=== PATIENT | female | born 1945 | race Caucasian/White ===

== ENCOUNTER → 2017-11-19 09:27 | Outpatient (CLI) | payer MEDICARE, OTHER, SELFPAY ==
--- NOTE | 2017-11-19 09:33 | MM_ITS ---
MM Dig screening mamm BI w/CAD CAD Screening ORDERING PHYSICIAN : Kathleen Manzanares PATIENT AGE: 71 years GENDER: Female COMPARISON: Previous mammograms: May 2016, February 2014, November INDICATION: Routine screening. No hormones. No new complaints.. Family history+ . Mother and sister with breast cancer TECHNIQUE: Standard CC and MLO images were obtained. R2 CAD reviewed. FINDINGS: Lower density breast with moderate fatty replacement. Stable scattered tiny areas of nodularity vaguely seen bilaterally have shown no significant change and appear stable baseline features for this patient. Stable and dating back to to 2010. Bilateral follow-up in one year adequate and recommended IMPRESSION: Stable mammogram No significant new areas of concern Follow up one year recommended BI-RADS Category: 2 Benign Finding(s) RECOMMENDED FOLLOW-UP: 1YR 1 YEAR FOLLOW-UP (A letter has been sent to the patient regarding results of the study.)
== END ==
PROVIDERS: PCP Family Medicine; Visit Provider Family Medicine
DX: Z12.31 Encounter for screening mammogram for malignant neoplasm of breast (principal)
CPT/HCPCS: 77067

== ENCOUNTER → 2018-11-22 15:42 | Outpatient (CLI) | payer MEDICARE, OTHER, SELFPAY ==
[2018-11-23 14:13] LABS: Basophils % 0.5 % (0.1-2.0); Eosinophils # 0.2 K/mm3 (0.0-0.4); Eosinophils % 2.5 % (0.1-12.0); Hematocrit 43.2 % (37.0-47.0); Hemoglobin 13.2 g/dL (12.2-16.2); Lymphocytes # 1.6 K/mm3 (0.7-4.5); Lymphocytes % 21.2 % (10-50); Mean Corpuscular HGB Conc 30.5 g/dL (31.8-35.4); Mean Corpuscular Volume 91.8 fl (81-99); Mean Platelet Volume 9.4 fl (7.4-10.4); Monocytes # 0.6 K/mm3 (0.1-1.0); Monocytes % 7.7 % (1.7-9.3); Neutrophils # 4.9 K/mm3 (1.8-7.8); Platelet Count 336 K/mm3 (142-424); Red Blood Count 4.71 M/mm3 (4.20-5.40); Red Cell Distribution Width 13.3 % (11.5-17.5); White Blood Count 7.3 K/mm3 (4.8-10.8)
[2018-11-23 15:51] LABS: Alanine Aminotransferase 27 U/L (12-78); Albumin Level 3.8 gm/dL (3.4-5.0); Albumin/Globulin Ratio 1.2 (1.1-1.8); Alkaline Phosphatase 87 U/L (46-116); Anion Gap 12.2 mEq/L (5-15); Aspartate Amino Transferase 17 U/L (15-37); Bilirubin,Total 0.4 mg/dL (0.2-1.0); Blood Urea Nitrogen 20 mg/dL (7-18); Calcium 9.1 mg/dL (8.5-10.1); Carbon Dioxide 29 mmol/L (21.0-32.0); Chloride 99 mmol/L (98-107); Chol/HDL Ratio 4.1 (1-3.5); Cholesterol 161 mg/dL (140-200); Creatinine,Serum 0.99 mg/dL (0.55-1.02); Estimated Glomerular Filt Rate 55 ml/min (>60); GFR (African American) 67 ML/MIN (>60); Globulin 3.1 gm/dl (1.3-3.2); Glucose 98 mg/dL (74-106); HDL Cholesterol 39 mg/dL (29-89); LDL Cholesterol 89 mg/dL (0-130); Potassium 4.2 mmoL/L (3.5-5.1); Sodium 136 mmol/L (136-145); T4 (Thyroxine) 12.3 ug/dl (4.7-13.3); Thyroid Stimulating Hormone 0.25 uIU/ml (0.358-3.740); Total Protein,Serum 6.9 gm/dL (6.4-8.2); Triglycerides 167 mg/dL (30-200); VLDL Cholesterol 33 mg/dL (0-40)
[2018-12-12 23:09] LABS: 1,25-Dihydroxy, Vitamin D-2 <10 pg/mL (.)
[2018-12-16 17:41] LABS: 1,25 Dihydroxy Vitamin D 14 pg/mL (.); 1,25-Dihydroxy, Vitamin D-3 14 pg/mL (.)
== END ==
PROVIDERS: Visit Provider Emergency Medicine
DX: I10 Essential (primary) hypertension (principal); Z79.891 Long term (current) use of opiate analgesic; E78.5 Hyperlipidemia, unspecified
CPT/HCPCS: 80053; 80061; 82652; 84436; 84443; 85025

== ENCOUNTER → 2018-12-05 07:35 | Outpatient (CLI) | payer MEDICARE, OTHER, SELFPAY ==
--- NOTE | 2018-12-05 07:38 | AS_ITS ---
Renal Arterial Duplex Indications: 405.91 Unspecified renovascular hypertension. IMPRESSIONS 1. Less than 60% stenosis involving the right renal artery 2. The left renal artery appears normal. 3. Right non-obstructing nephrolithiasis. History: Risk factors: Hypertension. Complete renal arterial duplex. Duplex scan and Doppler flow study including spectral analysis, color and dalton scale imaging. Height: Height: 157.5cm. Height: 62in. Weight: Weight: 110.2kg. Weight: 242.5lb. Body mass index: BMI: 44.4kg/m^2. Body surface area: BSA: 2.26m^2. Location: Vascular laboratory. Patient status: Outpatient. Tables: Arterial flow: + +-------+--------+ Location V sys V ed + +-------+--------+ Right renal - proximal 212cm/s 46.7cm/s + +-------+--------+ Right renal - mid 106cm/s 29.1cm/s + +-------+--------+ Right renal - distal 140cm/s 27.1cm/s + +-------+--------+ Left renal - proximal 150cm/s 25.4cm/s + +-------+--------+ Left renal - mid 119cm/s 25.5cm/s + +-------+--------+ Left renal - distal 102cm/s 25.2cm/s + +-------+--------+ Right renal-origin 230cm/s 51.6cm/s + +-------+--------+ Left renal-origin 155cm/s 43.5cm/s + +-------+--------+ Aorta-prox 116cm/s -------- + +-------+--------+ Renal anatomy: + +-----+------+ Left Right + +-----+------+ Long axis 9.2cm 10.3cm + +-----+------+ Short axis 6cm 6cm + +-----+------+ Cortical thickness 1.5cm 1.6cm + +-----+------+ Velocity ratios: + +-----+ V sys + +-----+ Right renal/aortic 2 + +-----+ Left renal/aortic 1.3 + +-----+ (Report amended ) Electronically signed by: Willian Marcum [id number]
== END ==
PROVIDERS: PCP Emergency Medicine; Visit Provider Emergency Medicine
DX: I70.1 Atherosclerosis of renal artery (principal)
CPT/HCPCS: 93976

== ENCOUNTER → 2019-01-12 12:55 | Outpatient (CLI) | payer MEDICARE, OTHER, SELFPAY ==
--- NOTE | 2019-01-12 12:57 | CA_ITS ---
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 Line: GEORGE Laterality: Bilateral Study Quality: Good Indications: episode of vision loss lt eye Risk Factors Hypertension: Hyperlipidemia Doppler Spectral Velocity Analysis ECA (R) 109.00/12.60 cm/s ECA (L) 121.00/16.70 cm/s dICA (R) 71.90/17.80 cm/s dICA (L) 92.70/26.00 cm/s Dena (R) 62.10/13.30 cm/s Dena (L) 72.40/23.90 cm/s pICA (R) 70.10/16.60 cm/s pICA (L) 80.00/19.50 cm/s dCCA (R) 79.80/16.00 cm/s dCCA (L) 67.00/14.70 cm/s pCCA (R) 107.00/16.50 cm/s pCCA (L) 75.40/16.50 cm/s Vert (R) 51.00/18.50 cm/s Vert (L) 55.50/15.40 cm/s ICA/CCA 0.90 ICA/CCA 1.38 Findings Duplex evaluation demonstrates stenosis of the right proximal internal carotid artery in the range of 20-49% with PSV <140 cm/sec, EDV <100 cm/sec, and IC/CC Ratio <4.0.Duplex evaluation demonstrates stenosis of the left proximal internal carotid artery <20% with PSV <140 cm/sec, EDV <100 cm/sec, and IC/CC Ratio <4.0. Antegrade flow seen bilateral vertebral arteries. Conclusion Duplex evaluation demonstrates stenosis of the right proximal internal carotid artery in the range of 20-49% with PSV <140 cm/sec, EDV <100 cm/sec, and IC/CC Ratio <4.0.Duplex evaluation demonstrates stenosis of the left proximal internal carotid artery <20% with PSV <140 cm/sec, EDV <100 cm/sec, and IC/CC Ratio <4.0. Antegrade flow seen bilateral vertebral arteries. Electronically signed by : Willian Marcum MD 01/12/2019 19:30:16
== END ==
PROVIDERS: PCP Emergency Medicine; Visit Provider Emergency Medicine
DX: G45.3 Amaurosis fugax (principal)
CPT/HCPCS: 93880

== ENCOUNTER → 2019-05-03 09:28 | Outpatient (CLI) | payer MEDICARE, OTHER, SELFPAY ==
--- NOTE | 2019-05-03 09:33 | XR_ITS ---
PROCEDURE: XR HIP LT 2-3V W/PELVIS CLINICAL INDICATION: left hip pain COMPARISON: No exams were available for comparison FINDINGS: No fracture or dislocation is evident. No significant degenerative change. No lytic or blastic change. Unremarkable soft tissues. IMPRESSION: Negative left hip Dictated by: Willian Marcum MD 05/03/2019 21:45 Electronically signed by Willian Marcum MD in [facility] 05/03/2019 21:45
--- NOTE | 2019-05-03 09:33 | XR_ITS ---
PROCEDURE: XR KNEE RT 4V CLINICAL INDICATION: right knee pain COMPARISON: No exams were available for comparison FINDINGS: There are severe osteoarthritic changes of the medial compartment and patellofemoral joint with moderate osteoarthritic change of the lateral compartment. Prominent osteophytes are present at the patellofemoral joint.. A sclerotic focus in present involving the distal shaft of the femur medially. There is mild lateral translation of the tibia on the weight-bearing view with lateral tibial subluxation of 11 mm. A calcific density overlies the medial femoral condyle may be due to a loose body. There is an additional calcific density overlying the medial aspect of the proximal tibia and could be due to an old avulsion fracture. There may be a loose body in the popliteal region. IMPRESSION: Severe osteoarthritic change of the medial compartment and patellofemoral joint. Please see above for details There is a sclerotic focus involving the distal shaft of the femur medially. This is of unknown clinical significance. Suggest follow-up femur films to exclude a blastic lesion. Dictated by: Willian Marcum MD 05/03/2019 21:39 Electronically signed by Willian Marcum MD in [facility] 05/03/2019 21:42
--- NOTE | 2019-05-03 09:33 | XR_ITS ---
PROCEDURE: XR HIP RT 2-3V W/PELVIS CLINICAL INDICATION: right hip pain COMPARISON: No exams were available for comparison FINDINGS: No fracture or dislocation is evident. No significant degenerative change. No lytic or blastic change. Unremarkable soft tissues. IMPRESSION: Negative right hip Dictated by: Willian Marcum MD 05/03/2019 21:45 Electronically signed by Willian Marcum MD in [facility] 05/03/2019 21:45
--- NOTE | 2019-05-03 09:33 | XR_ITS ---
PROCEDURE: XR KNEE LT 4V CLINICAL INDICATION: left knee pain Left knee pain COMPARISON: No exams were available for comparison FINDINGS: There are severe osteoarthritic changes of the medial compartment. There is mild lateral tibial translation of approximately 9 mm. No fracture or dislocation. Moderate osteoarthritic changes are present at the patellofemoral joint with osteophyte formation. IMPRESSION: Severe osteoarthritic change of the medial compartment with moderate osteoarthritic change of the patellofemoral joint Dictated by: Willian Marcum MD 05/03/2019 21:44 Electronically signed by Willian Marcum MD in [facility] 05/03/2019 21:44
== END ==
PROVIDERS: PCP Emergency Medicine; Visit Provider Orthopaedic Surgery
DX: M25.552 Pain in left hip (principal); M25.551 Pain in right hip; M25.562 Pain in left knee; M25.561 Pain in right knee
CPT/HCPCS: 73502; 73564

== ENCOUNTER → 2019-06-12 10:18 | Outpatient (CLI) | payer MEDICARE, OTHER, SELFPAY ==
[2019-06-12 11:57] LABS: Blood Urea Nitrogen 19 mg/dL (7-18); Carbon Dioxide 30 mmol/L (21.0-32.0); Chloride 102 mmol/L (98-107); Creatinine,Serum 0.86 mg/dL (0.55-1.02); Estimated Glomerular Filt Rate 65 ml/min (>60); GFR (African American) 79 ML/MIN (>60); Glucose 106 mg/dL (74-106); Sodium 139 mmol/L (136-145)
== END ==
PROVIDERS: Visit Provider Emergency Medicine
DX: Z01.818 Encounter for other preprocedural examination (principal)
CPT/HCPCS: 36415; 80048

== ENCOUNTER → 2019-06-14 13:49 | Outpatient (POV) | payer MEDICARE, OTHER, SELFPAY | DX: Z00.00 Encounter for general adult medical examination without abnormal findings (principal) ==

== ENCOUNTER → 2019-06-15 09:35 | Outpatient (CLI) | payer MEDICARE, OTHER, SELFPAY ==
--- NOTE | 2019-06-15 09:35 | CT_ITS ---
Procedure: CT ANGIO NECK CLINICAL HISTORY: TIA TIA, visual disturbance, COMPARISON: No exams were available for comparison TECHNIQUE: IV Contrast: 100ml Optiray 350 Axial images obtained with sagittal and coronal reformats. All CT scans at the facility use one or more dose reduction, viz: automated exposure control, ma/kV adjustment per patient size (including targeted exams where dose is matched to indication, i.e. head), or iterative reconstruction technique. FINDINGS: Aortic arch: Scattered atheromatous change. There are mild atheromatous calcifications of the great vessels but no hemodynamic significant stenosis. Right carotid: Common carotid has an unremarkable appearance. Mild atheromatous changes with small calcific plaque is present at the proximal right ICA with less than 20 percent stenosis. There is tortuosity of the right ICA having a retropharyngeal course. Left carotid: The common carotid has an unremarkable appearance. Calcific plaque is present at the carotid bulb. There is approximately 33 percent stenosis at this area. No ulcerated plaque is evident. The mid distal aspect of the left ICA have an unremarkable appearance. Vertebral arteries: No significant stenosis apparent. Both vertebrals are patent. IMPRESSION: 1. No hemodynamic significant stenotic lesion of the carotids evident. 2. There is approximately 33 percent stenosis of the proximal aspect of the left ICA. 3. No ulcerated plaques apparent. Dictated by: Willian Marcum MD 06/16/2019 08:11 Electronically signed by Willian Marcum MD in [facility] 06/16/2019 08:11
--- NOTE | 2019-06-15 09:35 | CT_ITS ---
Procedure: CT ANGIO HEAD CLINICAL HISTORY: TIA Visual disturbance left eye COMPARISON: CT ANGIO NECK from 06/15/2019 TECHNIQUE: IV Contrast: 100ml Optiray 350 Axial images obtained with sagittal and coronal reformats. All CT scans at the facility use one or more dose reduction, viz: automated exposure control, ma/kV adjustment per patient size (including targeted exams where dose is matched to indication, i.e. head), or iterative reconstruction technique. FINDINGS: No aneurysm or arteriovenous malformation apparent. Calcific plaque is present within the sellar portion of the right ICA causing at least 50 percent stenosis.. The vertebral basilar system has an unremarkable appearance. No enhancing lesions are evident within the brain. Delayed images show no evidence of sinus thrombosis IMPRESSION: Calcific plaque in the sellar portion of the right ICA causing approximately 50 percent stenosis otherwise negative Dictated by: Willian Marcum MD 06/16/2019 08:18 Electronically signed by Willian Marcum MD in [facility] 06/16/2019 08:18
== END ==
PROVIDERS: PCP Emergency Medicine; Visit Provider Emergency Medicine
DX: G45.9 Transient cerebral ischemic attack, unspecified (principal)
CPT/HCPCS: 70496; 70498; Q9967

== ENCOUNTER → 2019-06-19 10:31 | Outpatient (CLI) | payer MEDICARE, OTHER, SELFPAY ==
[2019-06-19 12:10] LABS: Erythrocyte Sedimentation Rate 18 mm/hr (0-30)
== END ==
DX: M31.6 Other giant cell arteritis (principal)
CPT/HCPCS: 36415; 85651

== ENCOUNTER 2019-12-28 12:22 | Inpatient (IN) | payer MEDICARE, OTHER, SELFPAY ==
[2019-12-28] VITALS (23 sets, daily range): BP systolic 99–153; BP diastolic 45–121; PULSE 52–110; RESP 14–22; TEMP 36.4–43; O2SAT 92–98; BMI 42.9; BMI 42.4
--- NOTE | 2019-12-28 12:45 | CT_ITS ---
PROCEDURE: CT ABDOMEN PELVIS WO CON CLINICAL INDICATION: pain Right upper quadrant abdominal pain. COMPARISON: No exams were available for comparison TECHNIQUE: Axial images obtained with sagittal and coronal reformats. All CT scans at the facility use one or more dose reduction, viz: automated exposure control, ma/kV adjustment per patient size (including targeted exams where dose is matched to indication, i.e. head), or iterative reconstruction technique. FINDINGS: LOWER THORAX: No acute finding. Calcification of the coronary arteries. There is a small hiatal hernia. ABDOMEN & PELVIS: Hepatobiliary: There is decreased attenuation of the liver, consistent with mild/moderate steatosis. Likely intraluminal gallbladder sludge is present. No dilated biliary ductal system. Pancreas: No demonstrated pancreatic mass or cyst. The spleen is not enlarged. A 1.8 centimeter low-density left adrenal nodule is seen, likely an adenoma. Normal right adrenal gland. Kidneys, ureters and bladder: Neither kidney shows calculi or hydronephrosis. A small left renal vascular calcification is seen. Both ureters have normal course and caliber. There is a nearly empty urinary bladder. No ureteral or bladder calculi are identified. Gastrointestinal: The stomach and small bowel are normal with no obstruction or evidence of inflammation. Moderate amount of retained stool is seen in the ascending and transverse colon. There is diffuse segmental spasm of the descending and rectosigmoid colon. In the right lower quadrant significant inflammatory changes are seen with stranding in the fat, edematous wall thickening of the cecum, a poorly defined 16.5 millimeters distended appendix like structure with a small focal calcification/appendicolith. Findings are compatible with a perforated acute appendicitis. Differential includes cecal diverticulitis, Crohn's disease and perforated cecal carcinoma. Reproductive organs: Anteverted atrophied uterus. Unremarkable adnexa. Lymphatic system: No significant adenopathy demonstrated within the abdomen/pelvis. Vasculature: Diffuse atheromatous calcification and tortuosity of the abdominal aorta and iliac arteries. Normal caliber abdominal aorta. No free intraperitoneal air is seen. Abdominal wall and musculoskeletal: Unremarkable soft tissue structures. Multilevel moderately advanced degenerative thoracolumbar endplate/disc spondylosis. IMPRESSION: 1.Significant inflammatory changes are seen in the right lower quadrant with stranding in the fat, wall thickening of the cecum, is 16.5 millimeter distended appendix like abnormal structure with a small focal calcification/appendicolith. Findings are suggestive of an acute perforated appendicitis, see above discussion. Recommend clinical/surgical consultation. 2. A 1.8 centimeter left adrenal low-density nodule, probably an adenoma. 3. Multilevel moderately advanced degenerative thoracolumbar disc/endplate spondylosis. Ps: Findings notified over the phone to the ER Dr Zacarias at the time of this dictation. Dictated by: Jeanie Enriquez 12/28/2019 13:43 Electronically signed by Jeanie Enriquez in [facility] 12/28/2019 13:43
[2019-12-28 12:52] LABS: Microscopic, Urine URINE MICROSCOPIC (MICROSCOPIC)
[2019-12-28 12:54] LABS: Appearance,Urine CLEAR (Clear); Blood, Urine 3+ (Negative); Color,Urine YELLOW (Yellow); Glucose,Urine (UA) Negative (Negative); Ketones,Urine Negative (Negative); Leukocyte Esterase,Urine TRACE (Negative); Nitrate,Urine Negative (Negative); Protein,Urine 1+ (Negative)
--- NOTE | 2019-12-28 12:56 | [facility].EDGENADL ---
ED Disposition Clinical Impression: Morbid obesity with BMI of 40.0-44.9, adult Acute appendicitis with perforation and generalized peritonitis Qualifiers: Appendicitis gangrene presence: unspecified whether gangrene present Appendicitis abscess presence: unspecified whether abscess present Qualified Code(s): K35.20 - Acute appendicitis with generalized peritonitis, without abscess Hypertension Qualifiers: Hypertension type: essential hypertension Qualified Code(s): I10 - Essential (primary) hypertension Disposition: Admitted As Inpatient Condition on Discharge: Fair Time of Disposition: 14:25 - Critical Care Critical Care Time: No Attestation: On , the high probability of a clinically significant, sudden or life threatening deterioration of the following system(s) required my full and direct attention, intervention and personal management. The time I documented below is in addition to time spent performing reported procedures but includes the following listed in this critical care notation. Medical Decision Making - Medical Records Medical records reviewed: Yes: I reviewed the patient's medical records. - Jose Ramon Inquiry Pt receiving controlled substance: No Vital Signs: 12/28/19 12:39 12/28/19 13:30 12/28/19 14:00 Temperature 99.3 F Temperature Source Oral Pulse Rate Pulse Rate [Radial] 110 H 71 89 Respiratory Rate 18 18 20 Blood Pressure Blood Pressure [Right Arm] 149/121 H 125/59 L 104/84 L Blood Pressure Mean [Right Arm] 130 81 90 Blood Pressure Source Blood Pressure Source [Right Arm] Automatic Cuff Automatic Cuff Automatic Cuff Blood Pressure Position Blood Pressure Position [Right Arm] Sitting Supine Supine 02 Sat by Pulse Oximetry 96 98 95 Oxygen Delivery Method Room Air Room Air Room Air 12/28/19 14:30 12/28/19 15:12 Temperature 99.5 F Temperature Source Oral Pulse Rate 87 Pulse Rate [Radial] 87 Respiratory Rate 22 22 Blood Pressure 153/51 H Blood Pressure [Right Arm] 153/51 H Blood Pressure Mean [Right Arm] 85 Blood Pressure Source Automatic Cuff Blood Pressure Source [Right Arm] Automatic Cuff Blood Pressure Position Sitting Blood Pressure Position [Right Arm] Supine 02 Sat by Pulse Oximetry 97 Oxygen Delivery Method Room Air Room Air - Lab Data Lab Results 12/28/19 12:45: Urine Color Yellow, Urine Appearance Clear, Urine pH 6.0, Ur Specific [place] 1.020, Urine Protein 1+, Urine Glucose (UA) Negative, Urine Ketones Negative, Urine Blood 3+, Urine Nitrate Negative, Urine Bilirubin 1+ A, Urine Urobilinogen 1.0, Ur Leukocyte Esterase Trace, Urine RBC 10-20, Urine WBC 3-5, Ur Squamous Epith Cells 5-10 12/28/19 12:45: WBC 19.9 H, RBC 5.13, Hgb 14.5, Hct 42.3, MCV 82.5, MCH 28.4, MCHC 34.4, RDW 12.9, Plt Count 344, MPV 7.6, Neut % (Auto) 89.5 H, Lymph % (Auto) 5.4 L, Towns % (Auto) 4.8, Eos % (Auto) 0.3, Baso % (Auto) 0.1, Neut # (Auto) 17.8 H, Lymph # (Auto) 1.1, Towns # (Auto) 1.0, Eos # (Auto) 0.1, Baso # (Auto) 0.0, Total Counted 100, Neutrophils % (Manual) 91 H, Lymphocytes % (Manual) 7 L, Monocytes % (Manual) 2, Platelet Estimate Normal, RBC Morphology Normal 12/28/19 12:45: Sodium 132 L, Potassium 3.6, Chloride 92 L, Carbon Dioxide 28, Anion Gap 15.6 H, BUN 17, Creatinine 1.00, Estimated Creat Clear 44, Estimated GFR 55 L, Est GFR ( Amer) 66, Glucose 162 H, Calcium 9.0, Total Bilirubin 1.4 H, AST 25, ALT 22, Alkaline Phosphatase 79, Total Protein 7.3, Albumin 4.2, Globulin 3.1, Albumin/Globulin Ratio 1.4 12/28/19 12:45: Lipase 84 12/28/19 12:45: PT 11.4, INR 1.12 H, APTT 25.9 12/28/19 12:45: SARS-CoV-2 IgG Ab (Rapid) Negative, SARS-CoV-2 IgM Ab (Rapid) Negative Result diagrams: 12/28/19 12:45 12/28/19 12:45 Orders (Tests/Meds): ED MEDICATIONS Generic Name Dose Route Start Last Admin Trade Name Freq PRN Reason Stop Dose Admin Sodium Chloride 1,000 mls @ 150 mls/hr 12/28/19 15:17 Sod Chlor 0.9% 1000ml Bag IV 01/27/20 15:16 .[id number] ESTHER
[2019-12-28 12:57] LABS: Basophils % 0.1 % (0.1-2.0); Eosinophils # 0.1 K/mm3 (0.0-0.4); Eosinophils % 0.3 % (0.1-12.0); Hematocrit 42.3 % (37.0-47.0); Hemoglobin 14.5 g/dL (12.2-16.2); Lymphocytes # 1.1 K/mm3 (0.7-4.5); Lymphocytes % 5.4 % (10-50); Mean Corpuscular HGB Conc 34.4 g/dL (31.8-35.4); Mean Corpuscular Hemoglobin 28.4 pg (27.0-31.2); Mean Corpuscular Volume 82.5 fl (81-99); Mean Platelet Volume 7.6 fl (7.4-10.4); Monocytes % 4.8 % (1.7-9.3); Neutrophils # 17.8 K/mm3 (1.8-7.8); Neutrophils % 89.5 % (37.0-80.0); Platelet Count 344 K/mm3 (142-424); Red Blood Count 5.13 M/mm3 (4.20-5.40); Red Cell Distribution Width 12.9 % (11.5-17.5); White Blood Count 19.9 K/mm3 (4.8-10.8)
[2019-12-28 12:58] LABS: Chloride 92 mmol/L (98-107); Potassium 3.6 mmoL/L (3.5-5.1); Sodium 132 mmol/L (136-145)
[2019-12-28 12:59] LABS: Bilirubin,Urine 1+ (Negative)
[2019-12-28 13:00] LABS: MANUAL DIFFERENTIAL MANUAL DIFFERENTIAL (MANUAL DIFF)
[2019-12-28 13:01] LABS: Alanine Aminotransferase 22 U/L (12-78); Albumin Level 4.2 g/dl (3.5-5.0); Albumin/Globulin Ratio 1.4 (1.1-1.8); Alkaline Phosphatase 79 U/L (38-126); Anion Gap 15.6 mEq/L (5-15); Aspartate Amino Transferase 25 U/L (14-36); Bilirubin,Total 1.4 mg/dl (0.2-1.3); Blood Urea Nitrogen 17 mg/dl (7-17); Carbon Dioxide 28 mmol/L (22.0-30.0); Creatinine Clearance Estimated 44 mL/min (50-200); Estimated Glomerular Filt Rate 55 ml/min (>60); GFR (African American) 66 ML/MIN (>60); Globulin 3.1 g/dL (1.3-3.2); Total Protein,Serum 7.3 g/dl (6.3-8.2)
[2019-12-28 13:02] LABS: Glucose 162 mg/dl (74-100)
[2019-12-28 13:17] LABS: Lymphocytes % 7 % (10-50); Monocytes % 2 % (2-9); Neutrophils % 91 % (42-76); Platelet Estimate Normal; RBC Morphology Normal; Total Cells Counted 100
--- NOTE | 2019-12-28 13:18 | PC.NURSE ---
pt back from rad
--- NOTE | 2019-12-28 13:43 | PC.NURSE ---
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
--- NOTE | 2019-12-28 13:44 | PC.NURSE ---
ON THE PHONE WITH AT THIS TIME
[2019-12-28 13:46] LABS: Lipase 84 U/L (23-300)
--- NOTE | 2019-12-28 14:05 | PC.NURSE ---
Dr. Zacarias speaking with Dr. Gonzalez related to admission.
--- NOTE | 2019-12-28 14:10 | XR_ITS ---
PROCEDURE: XR CHEST PORTABLE CLINICAL HISTORY: pre-op Hypertension. Nonsmoker. COMPARISON: CXR1 CHEST-PORTABLE from 06/07/2012 CXR CHEST(2 VIEWS-NOT PORTABLE) from 03/08/2015 FINDINGS: No acute bony abnormalities. The cardiomediastinal silhouette and pulmonary vascularity are within normal limits. The lungs are clear without infiltrates, suspicious nodules, or pleural effusions. There is an elevated diaphragm right side more than the left. IMPRESSION: 1. No acute findings. Stable appearing chest. Low lung volumes. Dictated by: Jeanie Enriquez 12/28/2019 14:43 Electronically signed by Jeanie Enriquez in [facility] 12/28/2019 14:43
[2019-12-28 14:25] LABS: Activated Partial Thrombo Time 25.9 seconds (23.6-34.0); INR 1.12 (0.9-1.1); Prothrombin Time 11.4 seconds (9.4-11.8)
--- NOTE | 2019-12-28 14:25 | ECG_ITS ---
APPROVED REPORT Exam: Resting ECG HR:85 bpm ECG Measurements Heart Rate 85 AXES [place] 164 P 78 QRSd 74 QRS -21 QT 362 T 45 QTc 430 <Conclusion> Sinus rhythm with fusion complexes Nonspecific ST and T wave abnormality Abnormal ECG Electronically signed by : Dank Krishnan, 12/31/2019 21:19:22
[2019-12-28 14:33] LABS: Coronavirus 19 IgG Antibody Negative (Negative); Coronavirus 19 IgM Antibody Negative (Negative)
[2019-12-28 15:24] LABS: Lactic Acid 1.2 mmol/L (0.7-2.1)
--- NOTE | 2019-12-28 15:37 | HMH.GSCON ---
*Admission Date: 12/28/19 *Reason for consult:: Perforated appendicitis *History of present illness: This is a 80-year-old female seen in consultation after being evaluated in the emergency department with increasing right-sided abdominal/flank pain over 3-4 days. Evaluation included a CT scan that revealed changes consistent with acute appendicitis with perforation. The surgical service was consulted. Review of Systems - Constitutional Denies chills - Eyes Denies discharge - ENT Denies difficulty swallowing - *Cardiovascular Denies chest pain - *Respiratory Denies cough - *Gastrointestinal Reports abdominal pain - *Genitourinary Denies abnormal vaginal bleeding - *Musculoskeletal Denies deformity - Integumentary/Breasts Denies lesions - *Neurologic Denies headache(s), Denies numbness - Psychiatric Denies anxiety - Endocrine Denies cold intolerance - Hematologic/Lymphatic Denies easy bleeding - Allergic/Immunologic Denies hives [facility] History Medical History: Reports:: Atrial Fibrillation, Hyperlipidemia, Hypertension *Have you ever received a pneumonia vaccine?: Yes *Have you received a flu vaccine this season?: No Other Medical History: Reports: Thyroid Disease Laterality Cases: Bilateral: Tonsillectomy Other Surgeries: Yes: No Previous Surgery, Colonoscopy, Dilation and Curettage, Other Amputation: No Fractures: No - *Social History Smoking Status: Never smoker Alcohol Intake: never Substance Use Type: denies use *Occupational Status:: disabled Housing: apartment Household Members: family *Travel in the last 8 weeks: None Family Hx:: Cancer, Thyroid Disorder, Hypertension, Hyperlipidemia Meds Home Medications Medication Instructions Recorded Confirmed Type aspirin 81 mg tablet,delayed 81 mg PO DAILY 11/22/18 06/26/19 History release hydrochlorothiazide 25 mg tablet 25 mg PO AM tab 11/22/18 06/26/19 History ergocalciferol (vitamin D2) 1,250 50,000 unit PO QWEEK 90 Days #12 12/19/18 06/26/19 Rx mcg (50,000 unit) capsule cap levothyroxine 125 mcg tablet PO DAILY tab 06/05/19 06/26/19 History erythromycin 5 mg/gram (0.5 %) eye OPHTHALMIC 06/26/19 06/26/19 History ointment rosuvastatin 5 mg tablet See Rx Instructions .ROUTE 10/09/19 Rx .COMPLEX #90 each metoprolol succinate 100 mg See Rx Instructions .ROUTE 10/20/19 Rx tablet,extended release 24 hr .COMPLEX #90 each lisinopril 40 mg tablet See Rx Instructions .ROUTE 12/07/19 Rx .COMPLEX #90 tablet cholecalciferol (vitamin D3) 25 25 mcg PO DAILY #90 cap 12/26/19 Rx mcg (1,000 unit) capsule Allergies Allergy/AdvReac Type Severity Reaction Status Date / Time acetaminophen Allergy Unknown Unknown Verified 12/28/19 15:25 [From Tylenol-Codeine #3] allergy reaction clarithromycin [From Biaxin] Allergy Unknown Unknown Verified 12/28/19 15:22 allergy reaction codeine Allergy Unknown Unknown Verified 12/28/19 15:25 [From Tylenol-Codeine #3] allergy reaction indomethacin [From Indocin] Allergy Unknown Unknown Verified 12/28/19 15:22 allergy reaction Penicillins Allergy Unknown Unknown Verified 12/28/19 15:25 allergy reaction Sulfa (Sulfonamide Allergy Unknown Unknown Verified 12/28/19 15:25 Antibiotics) allergy reaction Exam Vital signs and Labs for Last 24 Hours: Temp Pulse Resp BP Pulse Ox 99.5 F 87 22 153/51 H 97 12/28/19 15:12 12/28/19 15:12 12/28/19 15:12 12/28/19 15:12 12/28/19 14:30 Laboratory Results - last 24 hr 12/28/19 12:45: Urine Color Yellow, Urine Appearance Clear, Urine pH 6.0, Ur Specific [place] 1.020, Urine Protein 1+, Urine Glucose (UA) Negative, Urine Ketones Negative, Urine Blood 3+, Urine Nitrate Negative, Urine Bilirubin 1+ A, Urine Urobilinogen 1.0, Ur Leukocyte Esterase Trace, Urine RBC 10-20, Urine WBC 3-5, Ur Squamous Epith Cells 5-10 12/28/19 12:45: WBC 19.9 H, RBC 5.13, Hgb 14.5, Hct 42
--- NOTE | 2019-12-28 15:57 | P.PN_ITS ---
[facility] Anesthesia Checklist - Patient Identification Patient Identification: Arm Band - Structural Data Admitted From: Emergency Dept Planned Operative Procedure/s: laparoscopic appendectomy Consent for Planned Operative Procedure(s) Verified: Yes Verified Documents: Surgical Consent, History and Physical - NPO Status Verified Time NPO: 00:00 - Additional verifications Anesthesia Reactions: No - Airway Assessment C-Spine Mobility Assessed: Yes (mp2) TMJ Mobility Assessed: Yes Dentition: Edentulous - Neurological Assessment Level of Consciousness: Awake, Alert - Anesthesia Plan Anesthesia Risk discussed: Yes Anesthesia Plan: Verified ASA Class: III (E) Anesthesia Type: General [facility] History I have reviewed the patient's past medical history: Yes Medical History: Reports:: Atrial Fibrillation, Hyperlipidemia, Hypertension *Have you ever received a pneumonia vaccine?: Yes *Have you received a flu vaccine this season?: No Other Medical History: Reports: Thyroid Disease Anesthesia experience/problems:: nac Laterality Cases: Bilateral: Tonsillectomy Other Surgeries: Yes: Colonoscopy, Dilation and Curettage, Other Amputation: No Fractures: No - *Social History Smoking Status: Never smoker Alcohol Intake: never Substance Use Type: denies use *Occupational Status:: disabled Housing: apartment Household Members: family *Travel in the last 8 weeks: None Family Hx:: Cancer, Thyroid Disorder, Hypertension, Hyperlipidemia
--- NOTE | 2019-12-28 17:39 | P.OP_ITS ---
Date of procedure: 12/28/19 Pre-op Diagnosis:: Perforated appendicitis Post-op Diagnosis:: Perforated appendicitis Procedure performed:: Laparoscopic appendectomy Surgeon:: Alex Clark MD Sergeant Of Officers(s):: Stanislaw [employer] B[employer]KE TESTER:: Tim Mirza Anesthesia: GETA (Thad) Estimated blood loss (mL): 25 Operative findings:: Severe inflammation throughout entire right lower quadrant Suppurative changes noted throughout right lower quadrant Cloudy fluid without single definitive abscess cavity noted throughout right lower quadrant and pelvis Necrotic appendix centrally with feculent spillage around central appendiceal region Operative note:: After informed consent was obtained the patient was taken to the operating room and placed in the supine position. General anesthesia was induced and her abdomen was prepped and draped in a sterile fashion. After infiltration local anesthetic an infraumbilical incision was made. A Veress needle was placed in position. The abdomen was insufflated. A 12 mm optical trocar was placed in position. Under direct visualization a 5 mm trocar was placed in the suprapubic position and an additional 5 mm trocar was placed in the left lower quadrant. Severe inflammatory changes were noted throughout the right lower quadrant with suppurative material along the serosal margin of the colon and small bowel. A large amount of cloudy fluid was noted throughout the right lower quadrant and pelvis. The fluid was carefully evacuated. No single abscess cavity was encountered. Careful dissection along the right lateral margin revealed increasing severity of inflammation as the appendix was elevated. The appendix was very difficult to maneuver secondary to severe inflammatory changes. Obvious perforation with feculent material was noted in the mid appendiceal region. The appendiceal tissue adjacent to the perforation was obviously necrotic. Harmonic mario were utilized to take down the mesoappendix as the appendiceal tip was elevated. No obvious injury to the colon or small bowel was noted. With the appendix elevated the Endopath 45 stapling device was utilized to transect the base. The appendiceal base was very inflamed but did appear viable. The staple margin appeared viable with no obvious leakage or bleeding. The appendix was placed in a retrieval bag and removed through the infraumbilical trocar site. The right lower quadrant was thoroughly irrigated. The irrigant was carefully removed. Once again, no obvious single purulent cavity was encountered. The fascia at the infraumbilical trocar site was reapproximated with 0 Ethibond. Pneumoperitoneum was released as the remaining trocars were removed. All wounds were irrigated and skin was reapproximated with interrupted 4-0 Monocryl. Her anesthetic agents were reversed and she was extubated prior to transfer to recovery. Condition: stable Disposition: PACU Specimens:: Appendix Complications:: Immediate
--- NOTE | 2019-12-28 17:46 | HMH.ANESI ---
[facility] Anesthesia Record Part I Intake, IV Amount: 1,800 Estimated blood loss (mL): 25 Urine output (mL): 100 Blood Pressure: 126/65 SaO2: 92 Pulse Rate: 89 Respiratory Rate: 16 Temperature: 98.8 F Patient is:: Drowsy, Stable Stable to PACU at:: 17:40
[2019-12-28 18:24] LABS: Microscopic,Cath URINE MICROSCOPIC (MICROSCOPIC)
--- NOTE | 2019-12-28 18:40 | PC.NURSE ---
Pt arrived to floor at 1840 from PACU. Pt is pleasant and cooperative. A&O X4. No complaints of pain or SOA. Lungs CTA. No edema noted. Abdominal surgical dressing X3 noted to be c/d/i with no drainage. Post-op vitals initiated at this time. VSS. Call light within reach. Will continue to monitor.
[2019-12-28 18:44] LABS: Appearance,Urine/Cath CLEAR (Clear); Bilirubin,Cath Negative (Negative); Blood, Urine/Cath 2+ (Negative); Color,Urine/Cath YELLOW (Yellow); Glucose,Urine/Cath (UA) Negative (Negative); Ketones,Urine/Cath Negative (Negative); Leukocyte Esterase,Cath Negative (Negative); Nitrate,Cath Negative (Negative); Protein,Urine/Cath Negative (Negative); Specific Gravity, Urine/Cath <= 1.005 (1.005-1.030); Urobilinogen,Cath 0.2 EU/dl (0.2)
--- NOTE | 2019-12-28 18:48 | PC.NURSE ---
late entry pt arrived to floor at 183
[2019-12-28 20:26] LABS: Bacteria,Urine/Cath TRACE /lpf; Squamous Epithelial Ur./Cath Occasional #/hpf (0-5); WBC,Urine/Cath Occasional #/hpf (0-3)
[2019-12-29] VITALS (8 sets, daily range): BP systolic 100–132; BP diastolic 42–64; PULSE 54–76; RESP 16–22; TEMP 36.4–37.1; O2SAT 94–98; BMI 42.8
[2019-12-29 06:08] LABS: Chloride 100 mmol/L (98-107); Potassium 3.6 mmoL/L (3.5-5.1); Sodium 132 mmol/L (136-145)
[2019-12-29 06:11] LABS: Alanine Aminotransferase 12 U/L (12-78); Albumin Level 2.9 g/dl (3.5-5.0); Albumin/Globulin Ratio 1.1 (1.1-1.8); Alkaline Phosphatase 59 U/L (38-126); Anion Gap 8.6 mEq/L (5-15); Aspartate Amino Transferase 23 U/L (14-36); Bilirubin,Total 0.9 mg/dl (0.2-1.3); Blood Urea Nitrogen 18 mg/dl (7-17); Carbon Dioxide 27 mmol/L (22.0-30.0); Creatinine Clearance Estimated 44 mL/min (50-200); Estimated Glomerular Filt Rate 55 ml/min (>60); GFR (African American) 66 ML/MIN (>60); Globulin 2.7 g/dL (1.3-3.2); Total Protein,Serum 5.6 g/dl (6.3-8.2)
[2019-12-29 06:12] LABS: Glucose 128 mg/dl (74-100)
--- NOTE | 2019-12-29 06:23 | PC.NURSE ---
pt rested well t/o shift, ambulated multiple times to bathroom with standby assistance, denies pain or nausea
--- NOTE | 2019-12-29 07:03 | P.PN_ITS ---
Subjective Patient reports: no new complaints, feels better Exam Vital signs and Labs for Last 24 Hours: Temp Pulse Resp BP Pulse Ox 97.6 F 68 16 118/42 L 94 L 12/29/19 03:58 12/29/19 03:58 12/29/19 03:58 12/29/19 03:58 12/29/19 03:58 Laboratory Results - last 24 hr 12/28/19 12:45: Urine Color Yellow, Urine Appearance Clear, Urine pH 6.0, Ur Specific [place] 1.020, Urine Protein 1+, Urine Glucose (UA) Negative, Urine Ketones Negative, Urine Blood 3+, Urine Nitrate Negative, Urine Bilirubin 1+ A, Urine Urobilinogen 1.0, Ur Leukocyte Esterase Trace, Urine RBC 10-20, Urine WBC 3-5, Ur Squamous Epith Cells 5-10 12/28/19 12:45: WBC 19.9 H, RBC 5.13, Hgb 14.5, Hct 42.3, MCV 82.5, MCH 28.4, MCHC 34.4, RDW 12.9, Plt Count 344, MPV 7.6, Neut % (Auto) 89.5 H, Lymph % (Auto) 5.4 L, [place] % (Auto) 4.8, Eos % (Auto) 0.3, Baso % (Auto) 0.1, Neut # (Auto) 17.8 H, Lymph # (Auto) 1.1, [place] # (Auto) 1.0, Eos # (Auto) 0.1, Baso # (Auto) 0.0, Total Counted 100, Neutrophils % (Manual) 91 H, Lymphocytes % (Manual) 7 L, Monocytes % (Manual) 2, Platelet Estimate Normal, RBC Morphology Normal 12/28/19 12:45: Sodium 132 L, Potassium 3.6, Chloride 92 L, Carbon Dioxide 28, Anion Gap 15.6 H, BUN 17, Creatinine 1.00, Estimated Creat Clear 44, Estimated GFR 55 L, Est GFR ( Amer) 66, Glucose 162 H, Calcium 9.0, Total Bilirubin 1.4 H, AST 25, ALT 22, Alkaline Phosphatase 79, Total Protein 7.3, Albumin 4.2, Globulin 3.1, Albumin/Globulin Ratio 1.4 12/28/19 12:45: Lipase 84 12/28/19 12:45: PT 11.4, INR 1.12 H, APTT 25.9 12/28/19 12:45: SARS-CoV-2 IgG Ab (Rapid) Negative, SARS-CoV-2 IgM Ab (Rapid) Negative 12/28/19 15:05: Lactate 1.2 12/28/19 15:05: Blood Type A Positive, Antibody Screen Negative 12/28/19 17:00: Urine Color Yellow, Urine Appearance Clear, Urine pH 6.0, Ur Specific [place] <= 1.005, Urine Protein Negative, Urine Glucose (UA) Negative, Urine Ketones Negative, Urine Blood 2+, Urine Nitrate Negative, Urine Bilirubin Negative, Urine Urobilinogen 0.2, Ur Leukocyte Esterase Negative, Urine WBC Occasional, Ur Squamous Epith Cells Occasional, Urine Bacteria Trace 12/29/19 05:45: Sodium 132 L, Potassium 3.6, Chloride 100, Carbon Dioxide 27, Anion Gap 8.6, BUN 18 H, Creatinine 1.00, Estimated Creat Clear 44, Estimated GFR 55 L, Est GFR ( Amer) 66, Glucose 128 H D, Total Bilirubin 0.9, AST 23, ALT 12 D, Alkaline Phosphatase 59, Total Protein 5.6 L, Albumin 2.9 L D, Globulin 2.7, Albumin/Globulin Ratio 1.1 I & O for Last 24 hours: Intake & Output 12/26/19 12/27/19 12/28/19 12/29/19 11:59 11:59 11:59 11:59 Intake Total 3042 / 3042 Balance 3042 / 3042 Weight 251 lb 2 oz - Constitutional no acute distress - *Routine Respiratory Exam Absent: respiratory distress - *Routine Cardiovascular Exam Present: RRR - *Routine Abdominal Exam Present: soft Comments: Dressings intact. No erythema. Progress Note: A&P (1) Acute appendicitis with perforation and generalized peritonitis Status: Acute Assessment and plan: Overall, doing very well status post laparoscopic appendectomy. Continue clear liquids for now Increase ambulation Continue IV antibiotics for now Follow-up morning CBC Current Visit: Yes
--- NOTE | 2019-12-29 07:11 | P.PN_ITS ---
[facility] Anesthesia Record Part II Discharge Time: 18:30 Destination: Medical Surgical Department PACU nurse assessment reviewed?: Yes Patient Condition:: Good Anesthesia Complications:: None Swallowing reflex intact?: Yes Cyanosis?: No Blood Pressure: 117/59 Pulse Rate: 76 Temperature: 98.8 F Mental Status: Alert & Oriented Pain level:: 0 Nausea and/or vomitting:: None Intake, IV Amount: 0
[2019-12-29 07:32] LABS: Eosinophils % 0.1 % (0.1-12.0); Hematocrit 35.8 % (37.0-47.0); Lymphocytes # 0.8 K/mm3 (0.7-4.5); Mean Corpuscular HGB Conc 32.9 g/dL (31.8-35.4); Mean Corpuscular Hemoglobin 28.6 pg (27.0-31.2); Mean Corpuscular Volume 86.8 fl (81-99); Mean Platelet Volume 8.2 fl (7.4-10.4); Monocytes # 0.7 K/mm3 (0.1-1.0); Monocytes % 4.6 % (1.7-9.3); Neutrophils % 90.2 % (37.0-80.0); Platelet Count 220 K/mm3 (142-424); Red Blood Count 4.12 M/mm3 (4.20-5.40); Red Cell Distribution Width 12.9 % (11.5-17.5); White Blood Count 15.5 K/mm3 (4.8-10.8)
[2019-12-29 07:33] LABS: MANUAL DIFFERENTIAL MANUAL DIFFERENTIAL (MANUAL DIFF)
[2019-12-29 07:36] LABS: Calcium 7.8 mg/dl (8.4-10.2)
--- NOTE | 2019-12-29 07:46 | HMH.PHAVTE ---
[facility] Pharmacy VTE Monitoring - Patient Demographics Admission date: 12/28/19 Report Date: 12/29/19 Time: 07:46 Allergies/Adverse Reactions: Patient Allergies acetaminophen [From Tylenol-Codeine #3] Allergy (Unknown, Verified 12/28/19 15:25) Unknown allergy reaction clarithromycin [From Biaxin] Allergy (Unknown, Verified 12/28/19 15:22) Unknown allergy reaction codeine [From Tylenol-Codeine #3] Allergy (Unknown, Verified 12/28/19 15:25) Unknown allergy reaction indomethacin [From Indocin] Allergy (Unknown, Verified 12/28/19 15:22) Unknown allergy reaction Penicillins Allergy (Unknown, Verified 12/28/19 15:25) Unknown allergy reaction Sulfa (Sulfonamide Antibiotics) Allergy (Unknown, Verified 12/28/19 15:25) Unknown allergy reaction Height: 1.63 m Weight: 113.908 kg Patient Problems: Current Active Problems Acute appendicitis with perforation and generalized peritonitis (Acute) Morbid obesity with BMI of 40.0-44.9, adult (Acute) Hypertension (Acute) - VTE Risk Labs: VTE Related Lab Results Hgb 14.5 g/dL (12.2-16.2) 12/28/19 12:45 Hct 35.8 % (37.0-47.0) L 12/29/19 05:45 Plt Count 220 K/mm3 (142-424) D 12/29/19 05:45 PT 11.4 seconds (9.4-11.8) 12/28/19 12:45 INR 1.12 (0.9-1.1) H 12/28/19 12:45 APTT 25.9 seconds (23.6-34.0) 12/28/19 12:45 BUN 18 mg/dl (7-17) H 12/29/19 05:45 Creatinine 1.00 mg/dl (0.52-1.04) 12/29/19 05:45 Estimated Creat Clear 44 mL/min (50-200) 12/29/19 05:45 Was VTE Risk Assessment Performed: Yes VTE Score: 4 VTE Risk Level: Low Risk Clinical Trial Participant: No - Prophylaxis VTE Prophylaxis Ordered?: Yes Types of VTE Prophylaxis: TEDS Knee High Location of Applied Device: Bilateral Lower Extremeties
[2019-12-29 08:54] LABS: Eosinophils % 1 % (0-3); Lymphocytes % 3 % (10-50); Monocytes % 3 % (2-9); Neutrophils % 93 % (42-76); Platelet Estimate Normal; RBC Morphology Normal; Total Cells Counted 100
--- NOTE | 2019-12-29 09:12 | HMH.PHAINT ---
HOME MEDICATION RECONCILIATION COMPLETED USING LIST FROM HOME PHARMACY
--- NOTE | 2019-12-29 09:34 | HMH.HP ---
*Admission Date: 12/28/19 *Chief complaint: abd pain *History of present illness: 74-year-old female presented to the emergency department with abdominal pain. Pain is located in her right flank and radiates to her right lower abdomen with vomiting. Symptoms started 4 days ago. The pain was sharp, intense. She then had nausea and vomiting. Ct positive for appendicitis.surgery consulted for appendicitis and taken to or. [facility] History I have reviewed the patient's past medical history: Yes Medical History: Reports:: Atrial Fibrillation, Hyperlipidemia, Hypertension *Have you ever received a pneumonia vaccine?: Yes *Have you received a flu vaccine this season?: Yes Other Medical History: Reports: Thyroid Disease Anesthesia experience/problems:: nac Laterality Cases: Bilateral: Tonsillectomy Other Surgeries: Yes: No Previous Surgery, Colonoscopy, Dilation and Curettage, Other Amputation: No Fractures: No - *Social History Smoking Status: Never smoker Alcohol Intake: never Substance Use Type: denies use *Occupational Status:: unemployed, disabled Housing: apartment Household Members: family *Travel in the last 8 weeks: None Family Hx:: Cancer, Hyperlipidemia, Hypertension, Thyroid Disorder Review of Systems - Review of Systems Review of systems:: pertinent systems reviewed and negative unless documented below - Constitutional Denies fatigue - Eyes Denies change in vision - ENT Denies bleeding gums - *Cardiovascular Denies chest pain at rest, Denies fast heart rate - *Respiratory Denies cough - *Gastrointestinal Reports abdominal pain, Reports nausea, Reports vomiting, Denies bloating - *Genitourinary Denies abnormal vaginal bleeding - *Musculoskeletal Denies joint pain - Integumentary/Breasts Denies bleeding lesions, Denies rash, Denies sores - *Neurologic Denies headache(s), Denies numbness - Psychiatric Denies lack of enjoyment, Denies mood swings - Endocrine Denies excessive sweating - Hematologic/Lymphatic Denies easy bruising - Allergic/Immunologic Denies itchy eyes Meds Home Medications Medication Instructions Recorded Confirmed Type aspirin 81 mg tablet,delayed 81 mg PO DAILY 11/22/18 12/28/19 History release hydrochlorothiazide 25 mg tablet 25 mg PO DAILY tab 11/22/18 12/28/19 History levothyroxine 125 mcg tablet 125 mcg PO DAILY tab 06/05/19 12/28/19 History Cholecalciferol (Vitamin D3) 25 mcg PO DAILY 12/28/19 12/28/19 History [Vitamin D3 1,000 Unit Cap] Metoprolol Succinate [Metoprolol 100 mg PO DAILY 12/28/19 12/28/19 History Succinate 100mg Tablet*] Rosuvastatin Calcium 5 mg PO DAILY 12/28/19 12/28/19 History lisinopriL [Lisinopril 40mg Tablet] 40 mg PO DAILY 12/28/19 12/28/19 History Allergies Allergy/AdvReac Type Severity Reaction Status Date / Time acetaminophen Allergy Unknown Unknown Verified 12/28/19 15:25 [From Tylenol-Codeine #3] allergy reaction clarithromycin [From Biaxin] Allergy Unknown Unknown Verified 12/28/19 15:22 allergy reaction codeine Allergy Unknown Unknown Verified 12/28/19 15:25 [From Tylenol-Codeine #3] allergy reaction indomethacin [From Indocin] Allergy Unknown Unknown Verified 12/28/19 15:22 allergy reaction Penicillins Allergy Unknown Unknown Verified 12/28/19 15:25 allergy reaction Sulfa (Sulfonamide Allergy Unknown Unknown Verified 12/28/19 15:25 Antibiotics) allergy reaction Exam Vital signs and Labs for Last 24 Hours: Temp Pulse Resp BP Pulse Ox 97.9 F 65 20 115/64 95 12/29/19 08:00 12/29/19 08:00 12/29/19 08:00 12/29/19 08:00 12/29/19 08:00 Laboratory Results - last 24 hr 12/28/19 12:45: Urine Color Yellow, Urine Appearance Clear, Urine pH 6.0, Ur Specific [place] 1.020, Urine Protein 1+, Urine Glucose (UA) Negative, Urine Ketones Negative, Urine Blood 3+, Urine Nitrate Negative, Urine Bilirubin 1+ A, Urine Urobilinogen 1.0, Ur
[2019-12-29 10:37] LABS: Hemoglobin 11.8 g/dL (12.2-16.2)
--- NOTE | 2019-12-29 14:15 | PC.NURSE ---
PT IS RESTING IN BED. NO COMPLAINTS OF DISCOMFORT. ALERT AND ORIENTED X4. PT HAS AMBULATED TO THE BATHROOM SEVERAL TIMES THIS SHIFT. PT SAT UP IN THE CHAIR ALL MORNING AND DID NOT REQUEST TO LAY BACK DOWN TILL AFTER 1300. TOLERATING CLEAR LIQUIDS. DRESSINGS TO THE ABDOMEN C/D/I. ABDOMEN SOFT/MILD TENDERNESS WITH HYPOACTIVE BOWEL SOUNDS. SKUDS NOTED TO BLE. LUNG SOUNDS CLEAR. VSS. WILL CONTINUE TO MONITOR.
--- NOTE | 2019-12-29 19:12 | PC.NURSE ---
report given to maddi
--- NOTE | 2019-12-30 03:26 | PC.NURSE ---
Pt has been up most of the night. Pt continues to ambulate with standby assistance. Pt has c/o pain x1 this shift. Medication administered per MAR. No other complaints at this time. Call light is within reach. Will continue to monitor.
[2019-12-30 03:44] VITALS: BP 110/51; PULSE 65; RESP 20; TEMP 36.6; O2SAT 95
[2019-12-30 05:00] VITALS: BMI 43.0
[2019-12-30 06:31] LABS: Basophils % 0.2 % (0.1-2.0); Eosinophils # 0.2 K/mm3 (0.0-0.4); Eosinophils % 1.6 % (0.1-12.0); Hematocrit 38.3 % (37.0-47.0); Hemoglobin 13.2 g/dL (12.2-16.2); Lymphocytes # 1.4 K/mm3 (0.7-4.5); Lymphocytes % 10.4 % (10-50); Mean Corpuscular HGB Conc 34.4 g/dL (31.8-35.4); Mean Corpuscular Hemoglobin 28.7 pg (27.0-31.2); Mean Corpuscular Volume 83.5 fl (81-99); Mean Platelet Volume 8.9 fl (7.4-10.4); Monocytes # 0.6 K/mm3 (0.1-1.0); Monocytes % 4.7 % (1.7-9.3); Neutrophils # 11.4 K/mm3 (1.8-7.8); Neutrophils % 83.1 % (37.0-80.0); Platelet Count 247 K/mm3 (142-424); Red Blood Count 4.59 M/mm3 (4.20-5.40); White Blood Count 13.7 K/mm3 (4.8-10.8)
[2019-12-30 08:00] VITALS: BP 124/67; PULSE 78; RESP 17; TEMP 36.9; O2SAT 92
--- NOTE | 2019-12-30 09:04 | P.PN_ITS ---
Subjective Patient reports: feels better Narrative: Overall patient does feel better. She still does have some soreness in the right lower quadrant. She is taking some clear liquids. Exam Vital signs and Labs for Last 24 Hours: Temp Pulse Resp BP Pulse Ox 98.4 F 78 17 124/67 92 L 12/30/19 08:00 12/30/19 08:00 12/30/19 08:00 12/30/19 08:00 12/30/19 08:00 Laboratory Results - last 24 hr 12/29/19 05:45: Hgb 11.8 L D 12/30/19 06:00: WBC 13.7 H, RBC 4.59, Hgb 13.2, Hct 38.3, MCV 83.5, MCH 28.7, MCHC 34.4, RDW 13.0, Plt Count 247, MPV 8.9, Neut % (Auto) 83.1 H, Lymph % (Auto) 10.4, [place] % (Auto) 4.7, Eos % (Auto) 1.6, Baso % (Auto) 0.2, Neut # (Auto) 11.4 H, Lymph # (Auto) 1.4, [place] # (Auto) 0.6, Eos # (Auto) 0.2, Baso # (Auto) 0.0 I & O for Last 24 hours: Intake & Output 12/27/19 12/28/19 12/29/19 12/30/19 11:59 11:59 11:59 11:59 Intake Total 3162 / 3162 1980 Output Total 1100 / 1100 Balance 3162 / 3162 881 / 881 Weight 251 lb 2 oz 252 lb 2 oz - *Routine Abdominal Exam Present: soft Comments: Trocar site dressings clean dry and intact. Minor soreness and tenderness without guarding or rebound in the right lower quadrant Progress Note: A&P (1) Acute appendicitis with perforation and generalized peritonitis Status: Acute Current Visit: Yes Assessment and Plan for All Diagnoses:: Continue IV antibiotics for established peritonitis at this time. I will go ahead and advance to full liquid diet.
--- NOTE | 2019-12-30 12:38 | PC.NURSE ---
verified with dr. lucio at 1110 that it was okay to reorder patients home levothyroxine
--- NOTE | 2019-12-30 13:08 | PC.NURSE ---
zosyn will be late since vancomycin is currently infusing. okayed per pharmacy to keep the current schedule with abx
--- NOTE | 2019-12-30 13:32 | P.PN_ITS ---
Internal Medicine - PN: Subj *Date: 12/30/19 *Time: 13:32 Interval history: Patient had an uneventful night. She is up in the chair this morning, she is taking a clear liquid diet. He continues to have some discomfort in the right side of the abdomen. She has not passed flatus. He is otherwise in good spirits. Operative course is again reviewed. Exam Vital signs and Labs for Last 24 Hours: Temp Pulse Resp BP Pulse Ox 98.4 F 78 17 124/67 92 L 12/30/19 08:00 12/30/19 08:00 12/30/19 08:00 12/30/19 08:00 12/30/19 08:00 Laboratory Results - last 24 hr 12/30/19 06:00: WBC 13.7 H, RBC 4.59, Hgb 13.2, Hct 38.3, MCV 83.5, MCH 28.7, MCHC 34.4, RDW 13.0, Plt Count 247, MPV 8.9, Neut % (Auto) 83.1 H, Lymph % (Auto) 10.4, [place] % (Auto) 4.7, Eos % (Auto) 1.6, Baso % (Auto) 0.2, Neut # (Auto) 11.4 H, Lymph # (Auto) 1.4, [place] # (Auto) 0.6, Eos # (Auto) 0.2, Baso # (Auto) 0.0 I & O for Last 24 hours: Intake & Output 12/27/19 12/28/19 12/29/19 12/30/19 23:59 23:59 23:59 23:59 Intake Total 1800 / 1800 2540 / 2540 803 / 803 Output Total 400 / 400 700 / 700 Balance 1800 / 1800 2140 / 2140 103 / 103 Weight 247 lb 3 oz 251 lb 2 oz 252 lb 2 oz - Constitutional no acute distress, cooperative - *Routine HEENT Exam Head: Present: normocephalic, atraumatic Eye: Present: EOMI ENT: Present: mucous membranes moist - *Routine Neck Exam Present: supple, full ROM. Absent: JVD - *Routine Respiratory Exam Present: CTA bilaterally. Absent: accessory muscle use, rhonchi, wheezes, crackles - *Routine Cardiovascular Exam Present: RRR, Normal S1, Normal S2 - *Routine Abdominal Exam Present: tenderness. Absent: normoactive bowel sounds - *Routine Extremities Exam Present: pulses intact. Absent: cyanosis, clubbing, edema, calf tenderness, palpable cord - *Routine Skin Exam Present: intact. Absent: cyanosis, erythema, jaundice - *Routine Neurological Exam Present: alert, oriented X3, vision grossly intact, hearing grossly intact - Routine Psychiatric Exam Present: normal affect, cooperative, good insight, good judgment Assessment and Plan (1) Acute appendicitis with perforation and generalized peritonitis Current visit: Yes Status: Acute Qualifiers: Appendicitis gangrene presence: unspecified whether gangrene present A ppendicitis abscess presence: unspecified whether abscess present Qualified Code(s): K35.20 - Acute appendicitis with generalized peritonitis, without abscess Category: Medical Code(s): K35.20 - Acute appendicitis with generalized peritonitis, without abscess - Assessment and plan all Dx Assessment and Plan for all problems:: Continue current postoperative regimen
[2019-12-30 15:10] VITALS: BP 107/61; PULSE 78; RESP 17; TEMP 36.8; O2SAT 95
--- NOTE | 2019-12-30 16:17 | PC.NURSE ---
patient has done well this shift. has sat up in the chair and ambulated through out the room several times. she has had no complaints of pain. has tolerated full liquid diet well. dressing s on abdomen remain clean/dry/intact she has rested on and off through out the day. she rings out as needed. her vitals are stable. will continue to monitor.
[2019-12-30 19:57] VITALS: BP 118/66; PULSE 83; RESP 18; TEMP 37.4; O2SAT 93
--- NOTE | 2019-12-31 02:51 | PC.NURSE ---
A&OX4. PT TOLERATING RA WELL. PT UP WITH X1 ASSIST IN ROOM AND USE OF WALKER. TOLERATING WELL. PT HAS 3 ABD INCISIONS PRESENT, ALL CDI. PT STATES THAT HER ABD IS TENDER. PT STATES SHE HAS BEEN PASSING GAS. PT HAS NOT REQUESTED PAIN MED THUS FAR THIS SHIFT. PT FAMILY VISITED THIS SHIFT. PT RESTING IN BED WITH EYES CLOSED AT THIS TIME. NO C/O THUS FAR. VSS WILL CONTINUE TO MONITOR.
[2019-12-31 04:00] VITALS: BP 145/94; PULSE 93; RESP 18; TEMP 36.8; O2SAT 93
[2019-12-31 05:09] VITALS: BMI 43.2
--- NOTE | 2019-12-31 06:26 | PC.NURSE ---
PT REQUESTING TO WAIT UNTIL CLOSER TO 0800 TO TAKE LEVOTHYROXINE THIS MORNING. WILL PASS ON TO DAY-SHIFT NURSE.
[2019-12-31 07:36] VITALS: BP 160/78; PULSE 89; RESP 19; TEMP 37; O2SAT 93
[2019-12-31 07:43] LABS: Basophils % 0.2 % (0.1-2.0); Eosinophils # 0.2 K/mm3 (0.0-0.4); Eosinophils % 1.7 % (0.1-12.0); Hematocrit 36.7 % (37.0-47.0); Hemoglobin 12.5 g/dL (12.2-16.2); Lymphocytes # 1.3 K/mm3 (0.7-4.5); Lymphocytes % 11.7 % (10-50); Mean Corpuscular Volume 85.3 fl (81-99); Mean Platelet Volume 8.2 fl (7.4-10.4); Monocytes # 0.6 K/mm3 (0.1-1.0); Monocytes % 5.5 % (1.7-9.3); Neutrophils # 8.7 K/mm3 (1.8-7.8); Neutrophils % 80.9 % (37.0-80.0); Platelet Count 272 K/mm3 (142-424); Red Cell Distribution Width 12.7 % (11.5-17.5); White Blood Count 10.7 K/mm3 (4.8-10.8)
[2019-12-31 08:00] VITALS: O2SAT 93
--- NOTE | 2019-12-31 09:08 | P.PN_ITS ---
Subjective Narrative: Patient states that her pain is somewhat improved. However, she states that she still does not feel well today. She complains of some nausea and has taken minimal full liquids. She is passing flatus. Complains of a bitter taste in her mouth. Exam Vital signs and Labs for Last 24 Hours: Temp Pulse Resp BP Pulse Ox 98.6 F 89 19 160/78 H 93 L 12/31/19 07:36 12/31/19 07:36 12/31/19 07:36 12/31/19 07:36 12/31/19 08:00 Laboratory Results - last 24 hr 12/31/19 07:32: WBC 10.7, RBC 4.30, Hgb 12.5, Hct 36.7 L, MCV 85.3, MCH 29.0, MCHC 34.0, RDW 12.7, Plt Count 272, MPV 8.2, Neut % (Auto) 80.9 H, Lymph % (Auto) 11.7, [place] % (Auto) 5.5, Eos % (Auto) 1.7, Baso % (Auto) 0.2, Neut # (Auto) 8.7 H, Lymph # (Auto) 1.3, [place] # (Auto) 0.6, Eos # (Auto) 0.2, Baso # (Auto) 0.0 I & O for Last 24 hours: Intake & Output 12/28/19 12/29/19 12/30/19 12/31/19 11:59 11:59 11:59 11:59 Intake Total 3162 / 3162 1980 / 1980 2527 / 2527 Output Total 1100 / 1100 2700 / 2700 Balance 3162 / 3162 881 / 881 -173 / -173 Weight 251 lb 2 oz 252 lb 2 oz 253 lb 6 oz - *Routine Abdominal Exam Present: soft Comments: Dressings dry. Hypoactive bowel sounds Progress Note: A&P (1) Acute appendicitis with perforation and generalized peritonitis Status: Acute Current Visit: Yes Assessment and Plan for All Diagnoses:: Likely does have ileus. I will give her antiemetic if needed. Recommend increasing activity. Bitter taste in her mouth is likely secondary to metronidazole. I did encourage gum chewing. Limit to full liquids for now due to probable postoperative ileus.
--- NOTE | 2019-12-31 12:55 | P.PN_ITS ---
Internal Medicine - PN: Subj *Date: 12/31/19 *Time: 11:15 Interval history: pt states she is passing gas and has been up to bathroom and states she is feeling well Exam Vital signs and Labs for Last 24 Hours: Temp Pulse Resp BP Pulse Ox 98.6 F 89 19 160/78 H 93 L 12/31/19 07:36 12/31/19 07:36 12/31/19 07:36 12/31/19 07:36 12/31/19 08:00 Laboratory Results - last 24 hr 12/31/19 07:32: WBC 10.7, RBC 4.30, Hgb 12.5, Hct 36.7 L, MCV 85.3, MCH 29.0, MCHC 34.0, RDW 12.7, Plt Count 272, MPV 8.2, Neut % (Auto) 80.9 H, Lymph % (Auto) 11.7, [place] % (Auto) 5.5, Eos % (Auto) 1.7, Baso % (Auto) 0.2, Neut # (Auto) 8.7 H, Lymph # (Auto) 1.3, [place] # (Auto) 0.6, Eos # (Auto) 0.2, Baso # (Auto) 0.0 I & O for Last 24 hours: Intake & Output 12/29/19 12/30/19 12/31/19 01/01/20 11:59 11:59 11:59 11:59 Intake Total 3162 / 3162 1980 / 1980 2527 / 2527 Output Total 1100 / 1100 2700 / 2700 900 / 900 Balance 3162 / 3162 881 / 881 -173 / -173 -900 / -900 Weight 251 lb 2 oz 252 lb 2 oz 253 lb 6 oz - Constitutional no acute distress, obese - *Routine HEENT Exam Head: Present: normocephalic Eye: Present: PERRL ENT: Present: mucous membranes moist - *Routine Neck Exam Present: supple. Absent: lymphadenopathy - *Routine Respiratory Exam Present: CTA bilaterally - *Routine Cardiovascular Exam Present: RRR - *Routine Abdominal Exam Present: soft, normoactive bowel sounds. Absent: tenderness - *Routine Extremities Exam Present: normal capillary refill. Absent: cyanosis, clubbing, edema - *Routine Skin Exam Present: warm, wounds. Absent: rash Comments: dressing c/d/i - *Routine Neurological Exam Present: alert, oriented X3 - Routine Psychiatric Exam Present: normal affect Assessment and Plan (1) Acute appendicitis with perforation and generalized peritonitis Current visit: Yes Status: Acute Qualifiers: Appendicitis gangrene presence: unspecified whether gangrene present Appendicitis abscess presence: unspecified whether abscess present Qualified Code(s): K35.20 - Acute appendicitis with generalized peritonitis, without abscess Category: Medical Code(s): K35.20 - Acute appendicitis with generalized peritonitis, without abscess - Assessment and plan all Dx Assessment and Plan for all problems:: rounded with dr lucio all orders per dr lucio
[2019-12-31 15:03] VITALS: BP 147/85; PULSE 81; RESP 19; TEMP 36.8; O2SAT 95
--- NOTE | 2019-12-31 18:01 | PC.NURSE ---
ALERT AND ORIENTED X4. PT UP TO CHAIR MOST OF SHIFT. PT AMBULATED IN HALLWAY WITH WALKER AND STANDBY. PT AMBULATED INDEPENDENTLY IN ROOM WITH WALKER TO THE BATHROOM. PT COMPLAINED OF NAUSEA WITH BREAKFAST, ZOFRAN ADMINISTERED ONCE, NO ADDITIONAL COMPLAINTS VOICED. PT DENIES N/V/D. PT IS PASSING FLATUS BUT DENIES BM THIS SHIFT. BS ACTIVE ABDOMINAL INCISIONS REMAIN CDI. PAIN MEDS ADMINISTERED ONCE TODAY, PRE MEDICATED BEFORE FIRST AMBULATION IN HALLWAY.IV IS SECURE, PATENT, AND INFUSING IVF. PT REFUSED SCUDS, EDUCATION PROVIDED ON IMPORTANCE OF VTE. PT VERBALIZED UNDERSTANDING AND CONTINUE TO REFUSE. VSS. NO DISTRESS NOTED. SAFETY MEASURES IN PLACE, WILL CONTINUE TO MONITOR
[2019-12-31 19:40] VITALS: BP 125/68; PULSE 82; RESP 19; TEMP 36.8; O2SAT 98
--- NOTE | 2020-01-01 03:13 | PC.NURSE ---
Pt A&OX4.lungs CTA Pt has been medicated once this shift for abd pain MAR, on reassessment pt found resting quietly in bed. At the beginning of shift pt ambulated in [place] with walker and stand by assist. pt tolerated well. Post appy incisions cover with tegaderm and telfa c/d/i. pt has rested quietly this shift VSS
[2020-01-01 03:55] VITALS: BP 127/93; PULSE 72; RESP 16; TEMP 36.9; O2SAT 96
[2020-01-01 05:47] VITALS: BMI 43.0
--- NOTE | 2020-01-01 07:43 | HMH.GSPN ---
Subjective Patient reports: feels better Narrative: Patient feels better. Nausea has resolved. Exam Vital signs and Labs for Last 24 Hours: Temp Pulse Resp BP Pulse Ox 98.4 F 72 16 127/93 H 96 01/01/20 03:55 01/01/20 03:55 01/01/20 03:55 01/01/20 03:55 01/01/20 03:55 Laboratory Results - last 24 hr 12/31/19 07:32: WBC 10.7, RBC 4.30, Hgb 12.5, Hct 36.7 L, MCV 85.3, MCH 29.0, MCHC 34.0, RDW 12.7, Plt Count 272, MPV 8.2, Neut % (Auto) 80.9 H, Lymph % (Auto) 11.7, [place] % (Auto) 5.5, Eos % (Auto) 1.7, Baso % (Auto) 0.2, Neut # (Auto) 8.7 H, Lymph # (Auto) 1.3, [place] # (Auto) 0.6, Eos # (Auto) 0.2, Baso # (Auto) 0.0 I & O for Last 24 hours: Intake & Output 12/29/19 12/30/19 12/31/19 01/01/20 11:59 11:59 11:59 11:59 Intake Total 3162 / 3162 1980 / 1980 2527 / 2527 3170 / 3170 Output Total 1100 / 1100 2700 / 2700 2400 / 2400 Balance 3162 / 3162 881 / 881 -173 / -173 770 / 770 Weight 251 lb 2 oz 252 lb 2 oz 253 lb 6 oz 252 lb 6 oz - *Routine Abdominal Exam Present: soft Progress Note: A&P (1) Acute appendicitis with perforation and generalized peritonitis Status: Acute Current Visit: Yes Assessment and Plan for All Diagnoses:: Plan for discharge home today on continued oral antibiotics
--- NOTE | 2020-01-01 07:51 | HMH.DCSUM ---
General - General Admission date:: 12/28/19 Discharge date: 01/01/20 HPI HPI: 74-year-old female presented to the emergency department with abdominal pain. Pain is located in her right flank and radiates to her right lower abdomen with vomiting. Symptoms started 4 days ago. The pain was sharp, intense. She then had nausea and vomiting. Ct positive for appendicitis.surgery consulted for appendicitis and taken to or. Hospital Course Hospital Course: Patient was taken to the operating room in the afternoon of 12/28/2019 and underwent successful laparoscopic appendectomy. However she was found to have findings of Severe inflammation throughout entire right lower quadrant, Suppurative changes noted throughout right lower quadrant, Cloudy fluid without single definitive abscess cavity noted throughout right lower quadrant and pelvis Necrotic appendix centrally with feculent spillage around central appendiceal region . She continued as an inpatient. She was given limited clear liquids initially. Due to penicillin allergy she was continued on levofloxacin and metronidazole in the postoperative period. On postoperative day #2 patient had slowly improving but persistent leukocytosis. By postoperative day #3 her white blood cell count had normalized. She had no fevers in the postoperative period. By postoperative day #4 her nausea had resolved and she was tolerating some full liquid diet. Arrangements were made for discharge home at this time on continued oral antibiotics. Objective Vital signs: Temp Pulse Resp BP Pulse Ox 98.4 F 72 16 127/93 H 96 01/01/20 03:55 01/01/20 03:55 01/01/20 03:55 01/01/20 03:55 01/01/20 03:55 DS: Diagnosis - Discharge Diagnosis (1) Acute appendicitis with perforation and generalized peritonitis Status: Acute Discharge Plan - Patient Discharge Instructions ACTIVITY: No heavy lifting DIET: advance to your usual diet Patient Instructions: DI for Appendicitis -- Adult, DI for an Appendectomy, DI for Surgical Site Infection, How to Use Antibiotics Wisely - Follow up Plan Follow up with: Alex Clark MD [Staff Physician] - 1 week Disposition: Home, Self-Snf Medications: Home Medications Medication Instructions Recorded Confirmed Type aspirin 81 mg tablet,delayed 81 mg PO DAILY 11/22/18 12/28/19 History release hydrochlorothiazide 25 mg tablet 25 mg PO DAILY tab 11/22/18 12/28/19 History levothyroxine 125 mcg tablet 125 mcg PO DAILY tab 06/05/19 12/28/19 History Cholecalciferol (Vitamin D3) 25 mcg PO DAILY 12/28/19 12/28/19 History [Vitamin D3 1,000 Unit Cap] Metoprolol Succinate [Metoprolol 100 mg PO DAILY 12/28/19 12/28/19 History Succinate 100mg Tablet*] Rosuvastatin Calcium 5 mg PO DAILY 12/28/19 12/28/19 History lisinopriL [Lisinopril 40mg Tablet] 40 mg PO DAILY 12/28/19 12/28/19 History Hydrocod/Acet 5/325 mg [[place] 1 - 2 tab PO Q6HP PRN #21 tab 01/01/20 Rx 5/325mg tablet] levoFLOXacin [Levaquin 500mg 500 mg PO DAILY #5 tab 01/01/20 Rx tab] metroNIDAZOLE [Flagyl 500mg 500 mg PO TID #15 tab 01/01/20 Rx Tablet] Prescriptions/Medication Reconciliation: New levoFLOXacin [Levaquin 500mg tab] 500 mg PO DAILY #5 tab Hydrocod/Acet 5/325 mg [[place] 5/325mg tablet] 1 - 2 tab PO Q6HP PRN #21 tab PRN Reason: Moderate Pain metroNIDAZOLE [Flagyl 500mg Tablet] 500 mg PO TID #15 tab Continued aspirin 81 mg tablet,delayed release 81 mg PO DAILY levothyroxine 125 mcg tablet 125 mcg PO DAILY tab hydrochlorothiazide 25 mg tablet 25 mg PO DAILY tab Metoprolol Succinate [Metoprolol Succinate 100mg Tablet*] 100 mg PO DAILY lisinopriL [Lisinopril 40mg Tablet] 40 mg PO DAILY Cholecalciferol (Vitamin D3) [Vitamin D3 1,000 Unit Cap] 25 mcg PO DAILY Rosuvastatin Calcium 5 mg PO DAILY - Problem Reconciliation Problems Reviewed?: Yes
--- NOTE | 2020-01-01 07:57 | HMH.ACPN ---
Internal Medicine - PN: Subj *Date: 01/01/20 *Time: 07:57 Exam Vital signs and Labs for Last 24 Hours: Temp Pulse Resp BP Pulse Ox 98.4 F 72 16 127/93 H 96 01/01/20 03:55 01/01/20 03:55 01/01/20 03:55 01/01/20 03:55 01/01/20 03:55 I & O for Last 24 hours: Intake & Output 12/29/19 12/30/19 12/31/19 01/01/20 23:59 23:59 23:59 23:59 Intake Total 2540 / 2540 1163 / 1163 3887 / 3887 1450 / 1450 Output Total 400 / 400 2300 / 2700 2700 / 2700 800 / 800 Balance 2140 / 2140 -1137 / -1537 1187 / 1187 650 / 650 Weight 113.908 kg 114.362 kg 114.929 kg 114.475 kg Assessment and Plan (1) Acute appendicitis with perforation and generalized peritonitis Current visit: Yes Status: Acute Qualifiers: Appendicitis gangrene presence: unspecified whether gangrene present Appendicitis abscess presence: unspecified whether abscess present Qualified Code(s): K35.20 - Acute appendicitis with generalized peritonitis, without abscess Category: Medical Code(s): K35.20 - Acute appendicitis with generalized peritonitis, without abscess The patient's infection will respond to the chosen ABx?: Yes Is the patient receiving the right drug, dose, and route?: Yes Could a more targeted ABx be ordered?: No 5
[2020-01-01 08:00] VITALS: BP 143/59; PULSE 100; RESP 22; TEMP 36.7; O2SAT 97
--- NOTE | 2020-01-01 08:42 | HMH.ACPN2 ---
Internal Medicine - PN: Subj *Date: 01/01/20 *Time: 08:15 Interval history: pt states she is doing well and ready to go home Exam Vital signs and Labs for Last 24 Hours: Temp Pulse Resp BP Pulse Ox 98.1 F 100 H 22 143/59 H 97 01/01/20 08:00 01/01/20 08:00 01/01/20 08:00 01/01/20 08:00 01/01/20 08:00 I & O for Last 24 hours: Intake & Output 12/29/19 12/30/19 12/31/19 01/01/20 11:59 11:59 11:59 11:59 Intake Total 3162 / 3162 1980 / 1980 2527 / 2527 3170 / 3170 Output Total 1100 / 1100 2700 / 2700 2400 / 2400 Balance 3162 / 3162 881 / 881 -173 / -173 770 / 770 Weight 251 lb 2 oz 252 lb 2 oz 253 lb 6 oz 252 lb 6 oz - Constitutional no acute distress, obese - *Routine HEENT Exam Head: Present: normocephalic Eye: Present: PERRL ENT: Present: mucous membranes moist - *Routine Neck Exam Present: supple. Absent: lymphadenopathy - *Routine Respiratory Exam Present: CTA bilaterally - *Routine Cardiovascular Exam Present: RRR - *Routine Abdominal Exam Present: soft, normoactive bowel sounds. Absent: tenderness, distended Comments: dressing c/d/i - *Routine Extremities Exam Present: normal capillary refill. Absent: cyanosis, clubbing, edema - *Routine Skin Exam Present: warm. Absent: rash - *Routine Neurological Exam Present: alert, oriented X3 - Routine Psychiatric Exam Present: normal affect Assessment and Plan (1) Acute appendicitis with perforation and generalized peritonitis Current visit: Yes Status: Acute Qualifiers: Appendicitis gangrene presence: unspecified whether gangrene present Appendicitis abscess presence: unspecified whether abscess present Qualified Code(s): K35.20 - Acute appendicitis with generalized peritonitis, without abscess Category: Medical Code(s): K35.20 - Acute appendicitis with generalized peritonitis, without abscess - Assessment and plan all Dx Assessment and Plan for all problems:: rounded with dr lucio all orders per dr lucio 5
== END 2020-01-01 09:29 | disposition home or self-care (01) | DRG 340 ==
LOC: ER 13:49 → 2ND 14:23
PROVIDERS: Surgery; Admitting Provider Family Medicine; Emergency Provider Emergency Medicine; PCP Emergency Medicine; Visit Provider Family Medicine
PROC: 0DTJ4ZZ Resection of Appendix, Percutaneous Endoscopic Approach (ICD-10-PCS; CPT 44970; principal; 2019-12-28 16:00)
DX: K35.32 Acute appendicitis with perforation, localized peritonitis, and gangrene, without abscess (principal); I48.91 Unspecified atrial fibrillation; I10 Essential (primary) hypertension; E03.9 Hypothyroidism, unspecified; Z79.82 Long term (current) use of aspirin; Z79.899 Other long term (current) drug therapy; Z88.0 Allergy status to penicillin; Z88.2 Allergy status to sulfonamides; Z88.8 Allergy status to other drugs, medicaments and biological substances
CPT/HCPCS: 44970; 36415; 71045; 74176; 80053; 81001; 83605; 83690; 85007; 85025; 85610; 85730; 86328; 86850; 88304; 93005; 96365; 96375; 99285; J0131; J1956; J2405; J2543; J2710

== ENCOUNTER → 2020-01-24 13:29 | Outpatient (POV) | payer MEDICARE, OTHER, SELFPAY | DX: Z00.00 Encounter for general adult medical examination without abnormal findings (principal) ==

== ENCOUNTER → 2020-02-07 08:39 | Outpatient (CLI) | payer MEDICARE, OTHER, SELFPAY ==
[2020-02-07 09:37] LABS: Erythrocyte Sedimentation Rate 24 mm/hr (0-30)
[2020-02-07 10:15] LABS: Chol/HDL Ratio 4.2 (1-3.5); Cholesterol 154 mg/dl (140-200); HDL Cholesterol 37 mg/dl (40-60); Triglycerides 158 mg/dl (30-150); VLDL Cholesterol 32 mg/dL (0-40)
[2020-02-07 10:26] LABS: Direct LDL Cholesterol 88.21 mg/dL (100-129)
[2020-02-07 11:26] LABS: Hemoglobin A1C 6.3 % (4.0-6.0)
== END ==
PROVIDERS: Visit Provider Nurse Practitioner Family
DX: G47.19 Other hypersomnia (principal); G47.8 Other sleep disorders; H54.61 Unqualified visual loss, right eye, normal vision left eye; H54.62 Unqualified visual loss, left eye, normal vision right eye; I10 Essential (primary) hypertension; I99.8 Other disorder of circulatory system; R53.83 Other fatigue; R73.09 Other abnormal glucose; Z68.41 Body mass index [BMI] 40.0-44.9, adult; Z86.79 Personal history of other diseases of the circulatory system
CPT/HCPCS: 36415; 80061; 83036; 85651

== ENCOUNTER → 2020-02-08 14:47 | Outpatient (CLI) | payer MEDICARE, OTHER, SELFPAY ==
--- NOTE | 2020-02-08 14:48 | CA_ITS ---
APPROVED REPORT EXAM: Comprehensive 2D, Doppler, and color-flow Echocardiogram [employer]: Ruth Thakur RT(R) Ht: 5 ft 3 in Wt: 242lbs BSA: 2.10 BP: 132/70 mmHg Indications: TIA, HTN, ex smoker, palpitations, fatigue, obesity, hyperlipidemia, AFIB 2D Dimensions LVOT 1.96 cm (M/F) 1.5-2.5 M-Mode Dimensions RVDd 0.91 cm (0.9-2.6) LVDd 5.21 cm (3.5-5.7) LVDs 3.63 cm (3.5-5.7) IVSd 1.05 cm (0.6-1.1) PWd 0.93 cm (0.6-1.1) EF (Teich) 57.30% FS 30.30% EDV (Teich) 130.10 mL ESV (Teich) 55.50 mL LV Diastology E/A Ratio 1.19 Mitral Valve MV A Velocity 100.00 (40-130 cm/s) Left Ventricle Left atrium is mildly enlarged, left ventricle is normal size, there is mild concentric left ventricular hypertrophy, visually estimated ejection fraction 55% with no regional wall motion abnormality, grade 1 diastolic dysfunction seen without tissue Doppler evidence of raise left atrial pressure. Right Ventricle Right atrium and right ventricular normal size and contractility. Aortic Valve Aortic valve is minimally thickened and fibrosed, there is no aortic stenosis or aortic insufficiency. Mitral Valve Valve leaflets are minimally thickened, there is no mitral stenosis, there is mild mitral regurgitation. Tricuspid Valve Tricuspid valve grossly normal, there is mild tricuspid regurgitation, tricuspid regurgitation jet velocity is inadequate for calculation of the right ventricular systolic pressure. Pulmonic Valve Pulmonic valve is poorly visualized. Great Vessels Aortic root is normal size. Pericardium No significant pericardial effusion noted. Conclusion 1. Mildly enlarged left atrium, normal left ventricular size, mild concentric left ventricular hypertrophy, visually estimated ejection fraction 55% with no regional wall motion abnormality, grade 1 diastolic dysfunction seen without tissue Doppler evidence of raise left atrial pressure. 2. Mild mitral and tricuspid regurgitation. 3. No significant pericardial effusion noted. Electronically signed by : Eliot Unger, 02/09/2020 13:54:41
== END ==
PROVIDERS: PCP Emergency Medicine; Visit Provider Specialist
DX: G45.3 Amaurosis fugax (principal); G47.19 Other hypersomnia; G47.8 Other sleep disorders; H54.61 Unqualified visual loss, right eye, normal vision left eye; H54.62 Unqualified visual loss, left eye, normal vision right eye; I10 Essential (primary) hypertension; I99.8 Other disorder of circulatory system; R53.83 Other fatigue; R73.09 Other abnormal glucose; Z68.41 Body mass index [BMI] 40.0-44.9, adult; Z86.79 Personal history of other diseases of the circulatory system
CPT/HCPCS: 93306

== ENCOUNTER → 2020-02-09 14:05 | Outpatient (CLI) | payer MEDICARE, OTHER, SELFPAY ==
--- NOTE | 2020-02-12 09:23 | PC.NURSE ---
PATIENT TOOK HST HOME AND RETURNED DEVICE - NO SLEEP DATA ON DEVICE NO CHARGE
== END ==
PROVIDERS: PCP Emergency Medicine; Visit Provider Specialist
DX: G45.3 Amaurosis fugax (principal)
CPT/HCPCS: 93225; 93226

== ENCOUNTER → 2020-03-25 10:27 | Outpatient (CLI) | payer MEDICARE, OTHER, SELFPAY ==
[2020-03-25 12:42] LABS: Blood Urea Nitrogen 17 mg/dl (7-17); Estimated Glomerular Filt Rate 62 ml/min (>60); GFR (African American) 74 ML/MIN (>60)
== END ==
PROVIDERS: Visit Provider Specialist
DX: G45.9 Transient cerebral ischemic attack, unspecified (principal)
CPT/HCPCS: 36415; 82565; 84520

== ENCOUNTER → 2021-08-07 14:03 | Outpatient (CLI) | payer MEDICARE, OTHER, SELFPAY | PROVIDERS: PCP Emergency Medicine; Visit Provider Nurse Practitioner Family | DX: E78.5 Hyperlipidemia, unspecified (principal); I10 Essential (primary) hypertension; I48.91 Unspecified atrial fibrillation; R06.00 Dyspnea, unspecified; R42 Dizziness and giddiness; R94.31 Abnormal electrocardiogram [ECG] [EKG] | CPT/HCPCS: 93270 ==

== ENCOUNTER → 2021-08-19 13:54 | Outpatient (CLI) | payer MEDICARE, OTHER, SELFPAY ==
--- NOTE | 2021-08-19 13:57 | CA_ITS ---
APPROVED REPORT EXAM: Comprehensive 2D, Doppler, and color-flow Echocardiogram Line Camera Operator: Colleen Joe CRT Ht: 5 ft 3 in Wt: 244lbs BSA: 2.10 BP: 168/87 mmHg Indications: Abnormal ECG, Shortness of Breath, Atrial Fibrillation, Obesity, Palpitations, Hyperlipidemia, Hypertension/HDD 2D Dimensions LVOT 1.61 cm (M/F) 1.5-2.5 LA Volume 70.80 mL LA Volume Index 33.70 mL/m2 (M/F) 16-34 M-Mode Dimensions RVDd 2.74 cm (0.9-2.6) LA Diam 4.41 cm (1.9-4.0) LVDd 4.44 cm (3.5-5.7) Ao Diam 3.62 cm (2.0-3.7) LVDs 2.20 cm (3.5-5.7) IVSd 1.47 cm (0.6-1.1) PWd 0.80 cm (0.6-1.1) EF (Teich) 81.90% FS 50.50% EDV (Teich) 89.60 mL TAPSE 2.33 (<1.7) ESV (Teich) 16.20 mL LV Diastology E Decel Time 187.00 (160-240 msec) E/A Ratio 0.88 MED E' 6.40 (< 7 cm/sec) MED A' 8.60 cm/s E'/MED E' Ratio 14.86 (>14) LAT E' 9.60 (<10 cm/sec) LAT A' 10.30 cm/s E/LAT E' Ratio 9.91 (>14) Aortic Valve AO Peak GR. 11.40 mmHg Mitral Valve MV A Velocity 108.00 (40-130 cm/s) E/A Ratio 0.88 MV Decel. Time 187.00 (160-240 ms) Pulmonary Valve PV Peak Velocity 178.00 (50-150 cm/s) Tricuspid Valve TR P. Velocity 468.00 cm/s RAP Estimate 10.00 mmHg RVSP 97.70 mmHg Left Ventricle Left atrium is mildly enlarged, left ventricle normal size, mild concentric left ventricular hypertrophy, visually estimated ejection fraction 55% with no regional wall motion abnormality, diastolic parameters are inconclusive. Right Ventricle Right atrium and right ventricle mildly enlarged with normal contractility. Aortic Valve Aortic valve is minimally thickened and fibrosed, there is no aortic stenosis or aortic insufficiency. Mitral Valve Motor is grossly normal, there is mild mitral regurgitation. Tricuspid Valve Tricuspid grossly normal, there is mild tricuspid regurgitation, tricuspid regurgitation jet velocity is inadequate for calculation of the right ventricular systolic pressure. Pulmonic Valve Pulmonic valve is poorly visualized. Great Vessels Aortic root is normal size. Inferior vena cava is poorly visualized. Pericardium No significant pericardial effusion. Conclusion 1. Mildly enlarged left atrium, normal left ventricular size, mild concentric left ventricular hypertrophy, visually estimated ejection fraction 55% with no regional wall motion abnormality, diastolic parameters are inconclusive. 2. Mildly enlarged right ventricle with normal contractility. 3. Mild mitral and tricuspid regurgitation. 4. No significant pericardial effusion. 5. Inferior vena cava is poorly visualized. Electronically signed by : Eliot Unger MD 08/19/2021 21:15:56
--- NOTE | 2021-08-19 13:57 | CA_ITS ---
FINAL REPORT TECHNIQUE: Color Doppler, duplex Doppler and dalton scale sonography of the bilateral neck arterial vasculature was performed. Velocities were measured in the carotid arteries. Stenosis evaluation based on the validated velocity criteria. CLINICAL HISTORY: VIC,HTN,HLD FINDINGS: The peak systolic velocity of the right common carotid artery is 91 cm/s. The peak systolic velocity of the right internal carotid artery is 93 cm/s and end diastolic velocity 24 cm/s. The ICA/CCA ratio is 1.02. A mild to moderate amount of plaque is present. The right external carotid artery is patent. The right vertebral artery is patent with antegrade flow. The peak systolic velocity of the left common carotid artery is 79 cm/s. The peak systolic velocity of the left internal carotid artery is 121 cm/s and end diastolic velocity 32 cm/s. The ICA/CCA ratio is 1.53. A mild to moderate amount of plaque is present. The left external carotid artery is patent.The left vertebral artery is patent with antegrade flow. IMPRESSION: Less than 50% bilateral carotid stenosis. Bilateral patent vertebral arteries with antegrade flow. If indicated, CTA or MRA could further evaluate. Reviewed, Interpreted and Dictated by Simon Tuttle MD Transcribed by Claudette Schafer Authenticated by Simon Tuttle MD on 08/19/2021 04:01:28 PM [facility]
== END ==
PROVIDERS: PCP Emergency Medicine; Visit Provider Nurse Practitioner Family
DX: E78.5 Hyperlipidemia, unspecified (principal); I10 Essential (primary) hypertension; I48.91 Unspecified atrial fibrillation; R06.00 Dyspnea, unspecified; R42 Dizziness and giddiness; R94.31 Abnormal electrocardiogram [ECG] [EKG]
CPT/HCPCS: 93306; 93880

== ENCOUNTER → 2022-03-06 15:30 | Outpatient (CLI) | payer MEDICARE, OTHER, SELFPAY ==
[2022-03-06 18:45] LABS: Influenza A, PCR Not Detected (NotDetected); Influenza B, PCR Not Detected (NotDetected)
[2022-03-06 20:24] LABS: Coronavirus 19, PCR Detected (NotDetected)
== END ==
PROVIDERS: PCP Student in an Organized Health Care Education/Training Program; Visit Provider Student in an Organized Health Care Education/Training Program
DX: J39.8 Other specified diseases of upper respiratory tract (principal); R05.9 Cough, unspecified; U07.1 COVID-19
CPT/HCPCS: C9803; U0003; U0005

== ENCOUNTER 2024-01-20 10:28 | Outpatient (CLI) | payer MEDICARE, OTHER, SELFPAY ==
[2024-01-20 18:50] LABS: Basophils # 0.1 K/mm3 (0-0.2); Basophils % 0.9 % (0.1-2.0); Eosinophils # 0.2 K/mm3 (0.0-0.4); Eosinophils % 2.5 % (0.1-12.0); Hematocrit 44.2 % (37.0-47.0); Hemoglobin 13.7 g/dL (12.2-16.2); Lymphocytes # 1.4 K/mm3 (0.7-4.5); Mean Corpuscular HGB Conc 30.9 g/dL (31.8-35.4); Mean Corpuscular Hemoglobin 28.5 pg (27.0-31.2); Mean Corpuscular Volume 92.2 fl (81-99); Monocytes # 0.6 K/mm3 (0.1-1.0); Monocytes % 8.9 % (1.7-9.3); Neutrophils # 4.1 K/mm3 (1.8-7.8); Neutrophils % 64.6 % (37.0-80.0); Platelet Count 287 K/mm3 (142-424); Red Cell Distribution Width 13.9 % (11.5-17.5); White Blood Count 6.3 K/mm3 (4.8-10.8)
[2024-01-20 18:56] LABS: Creatinine,Urine Random 17 mg/dL (Not Estab.); Hemoglobin A1C 5.7 % (4.0-6.0)
[2024-01-20 19:04] LABS: Microalbumin < 6.000 mg/L (0-16.7)
[2024-01-20 19:52] LABS: Alanine Aminotransferase 22 U/L (12-78); Albumin Level 3.9 g/dl (3.5-5.0); Albumin/Globulin Ratio 1.3 (1.1-1.8); Alkaline Phosphatase 82 U/L (38-126); Anion Gap 10.2 mEq/L (5-15); Aspartate Amino Transferase 29 U/L (14-36); Bilirubin,Total 0.6 mg/dl (0.2-1.3); Blood Urea Nitrogen 17 mg/dl (7-17); Calcium 9.2 mg/dl (8.4-10.2); Carbon Dioxide 29 mmol/L (22.0-30.0); Chloride 104 mmol/L (98-107); Estimated Glomerular Filt Rate 70 ml/min (>60); GFR (African American) 84 ML/MIN (>60); Glucose 97 mg/dl (74-100); Potassium 4.2 mmoL/L (3.5-5.1); Sodium 139 mmol/L (136-145); Total Protein,Serum 6.9 g/dl (6.3-8.2)
[2024-01-20 20:08] LABS: 25-OH Vitamin D, Total 26.2 ng/mL (30-100)
[2024-01-20 20:21] LABS: Thyroid Stimulating Hormone 0.09 uIU/mL (0.465-4.68)
== END 2024-01-20 23:59 | disposition home or self-care (01) ==
LOC: LAB.DROPOF 01-21 10:28
PROVIDERS: PCP Internal Medicine; Visit Provider Internal Medicine
DX: I10 Essential (primary) hypertension (principal); E66.01 Morbid (severe) obesity due to excess calories; Z68.41 Body mass index [BMI] 40.0-44.9, adult; E07.9 Disorder of thyroid, unspecified; Z13.1 Encounter for screening for diabetes mellitus; E55.9 Vitamin D deficiency, unspecified; Z87.891 Personal history of nicotine dependence
CPT/HCPCS: 80050; 80053; 82043; 82306; 82570; 83036; 84443; 85025

== ENCOUNTER 2024-02-16 09:33 | Outpatient (CLI) | payer MEDICARE, OTHER, SELFPAY ==
[2024-02-16 18:36] LABS: Basophils # 0.1 K/mm3 (0-0.2); Basophils % 0.9 % (0.1-2.0); Eosinophils # 0.1 K/mm3 (0.0-0.4); Eosinophils % 2.1 % (0.1-12.0); Hematocrit 45.5 % (37.0-47.0); Hemoglobin 14.5 g/dL (12.2-16.2); Lymphocytes # 1.3 K/mm3 (0.7-4.5); Lymphocytes % 21.6 % (10-50); Mean Corpuscular HGB Conc 31.9 g/dL (31.8-35.4); Mean Corpuscular Hemoglobin 28.5 pg (27.0-31.2); Mean Corpuscular Volume 89.3 fl (81-99); Mean Platelet Volume 9.2 fl (7.4-10.4); Monocytes # 0.5 K/mm3 (0.1-1.0); Monocytes % 7.3 % (1.7-9.3); Neutrophils # 4.2 K/mm3 (1.8-7.8); Neutrophils % 68.2 % (37.0-80.0); Platelet Count 292 K/mm3 (142-424); Red Cell Distribution Width 13.7 % (11.5-17.5); White Blood Count 6.2 K/mm3 (4.8-10.8)
[2024-02-16 19:01] LABS: Alanine Aminotransferase 17 U/L (12-78); Albumin Level 3.8 g/dl (3.5-5.0); Albumin/Globulin Ratio 1.3 (1.1-1.8); Alkaline Phosphatase 78 U/L (38-126); Anion Gap 8.2 mEq/L (5-15); Aspartate Amino Transferase 26 U/L (14-36); Bilirubin,Total 0.7 mg/dl (0.2-1.3); Blood Urea Nitrogen 23 mg/dl (7-17); Carbon Dioxide 30 mmol/L (22.0-30.0); Chloride 104 mmol/L (98-107); Chol/HDL Ratio 5.3 (1-3.5); Cholesterol 218 mg/dl (140-200); Estimated Glomerular Filt Rate 61 ml/min (>60); GFR (African American) 74 ML/MIN (>60); Glucose 101 mg/dl (74-100); HDL Cholesterol 41 mg/dl (40-60); Potassium 4.2 mmoL/L (3.5-5.1); Sodium 138 mmol/L (136-145); Total Protein,Serum 6.8 g/dl (6.3-8.2); Triglycerides 187 mg/dl (30-150); VLDL Cholesterol 37 mg/dL (0-40)
[2024-02-16 19:18] LABS: Free T4 (Free Thyroxine) 1.76 ng/dl (0.78-2.19)
[2024-02-16 19:32] LABS: Thyroid Stimulating Hormone 0.59 uIU/mL (0.465-4.68)
[2024-02-16 21:29] LABS: HIV (1&2) Antibody Rapid NONREACTIVE (NONREACTIVE)
[2024-02-18 05:13] LABS: HBsAg Screen Negative (Negative); HCV Ab Non Reactive (Non Reactive); Hep A Ab, IGM Negative (Negative); Hep B Core Ab, IgM Negative (Negative)
[2024-02-18 08:26] LABS: Thyroid Peroxidase Antibodies <9 IU/mL (0-34); Triiodothyronine (T3) Free 2.3 pg/mL (2.0-4.4)
== END 2024-02-16 23:59 | disposition home or self-care (01) ==
LOC: LAB.DROPOF 02-17 09:37
PROVIDERS: PCP Internal Medicine; Visit Provider Internal Medicine
DX: K74.60 Unspecified cirrhosis of liver (principal); Z11.59 Encounter for screening for other viral diseases; E07.9 Disorder of thyroid, unspecified; J06.9 Acute upper respiratory infection, unspecified; E78.5 Hyperlipidemia, unspecified; I10 Essential (primary) hypertension
CPT/HCPCS: 80050; 80053; 80061; 80074; 84439; 84443; 84481; 85025; 86376; 86803; 87389

== ENCOUNTER 2024-02-28 13:25 | Outpatient (CLI) | payer MEDICARE, OTHER, SELFPAY ==
--- NOTE | 2024-02-28 13:25 | MM_ITS ---
PROCEDURE INFORMATION: Exam: MG Bilateral Screening 3D Mammography Exam date and time: 02/28/2024 1:14 PM Age: 78 years old Clinical indication: Screening mammogram TECHNIQUE: Imaging protocol: Bilateral Screening tomosynthesis and 2D mammography including computer-aided detection (CAD) when performed. COMPARISON: 1. MG SCBI MM Dig screening mamm BI w/CAD 11/19/2017 9:45 AM 2. MG DMSB DIG MAMM-SCREEN ELIAS W/CAD 06/18/2016 11:01 AM 3. MG DMSB DIG MAMM-SCREEN ELIAS 03/05/2014 8:45 AM 4. MG DMSB DIGITAL MAMM-SCREEN BILATERAL 12/15/2011 10:06 AM FINDINGS: MAMMOGRAPHY: Breast composition: There are scattered areas of fibroglandular density. Mass: Stable benign-appearing subcentimeter nodules are present in the bilateral breasts. No new or morphologically suspicious nodule has developed to suggest malignancy. Architectural distortion: No new or suspicious architectural distortion. Calcifications: No new or suspicious calcifications are present Asymmetric density: No new or suspicious asymmetric density is present Skin thickening: None. Axillary adenopathy: None. IMPRESSION: No mammographic evidence of malignancy. Recommend annual screening mammography unless otherwise clinically indicated. ASSESSMENT: BI-RADS category 2: Benign.
== END 2024-02-28 23:59 | disposition home or self-care (01) ==
LOC: RAD 13:25
PROVIDERS: PCP Internal Medicine; Visit Provider Internal Medicine
DX: Z12.31 Encounter for screening mammogram for malignant neoplasm of breast (principal)
CPT/HCPCS: 77063; 77067

== ENCOUNTER 2024-10-06 10:34 | Outpatient (CLI) | payer MEDICARE, OTHER, SELFPAY ==
--- NOTE | 2024-10-06 11:00 | US_ITS ---
PROCEDURE INFORMATION: Exam: US Right Breast, Complete Exam date and time: 10/06/2024 10:46 AM Age: 78 years old Clinical indication: Right breast pain. TECHNIQUE: Imaging protocol: Complete ultrasound of all four quadrants of the right breast and the retroareolar regions, including ultrasound of the axilla when performed. COMPARISON: MG MM DIG SCREENING MAMM BI W/CAD 02/28/2024 1:14 PM FINDINGS: ULTRASOUND: Breast ultrasound findings: The right breast was evaluated with ultrasound. No finding to explain the patient's breast pain. Benign simple cyst measuring 0.3 cm at 11 o'clock 2 cm from the nipple. Probable ductal dilatation at 4 o'clock 3 cm from the nipple. Elsewhere there are no solid masses. No abnormal lymph nodes in the axilla. IMPRESSION: Probable ductal dilatation in the right breast at 4 o'clock is probably benign. Recommend six-month follow-up right breast ultrasound to ensure stability. ASSESSMENT: BI-RADS Category 3: Probably benign.
== END 2024-10-06 23:59 | disposition home or self-care (01) ==
LOC: RAD 10:34
PROVIDERS: PCP Internal Medicine; Visit Provider Internal Medicine
DX: N64.4 Mastodynia (principal); N60.01 Solitary cyst of right breast
CPT/HCPCS: 76641